=== PATIENT | male | born 1975 | race Two or more races ===

== ENCOUNTER → 2020-06-13 15:14 | Outpatient (BNVA) | payer OTHER, SELFPAY | PROVIDERS: PCP Internal Medicine; Referring Provider Internal Medicine; Visit Provider Internal Medicine Cardiovascular Disease | DX: Q23.1 Congenital insufficiency of aortic valve (principal); G47.33 Obstructive sleep apnea (adult) (pediatric); I10 Essential (primary) hypertension; Z99.89 Dependence on other enabling machines and devices; Z79.899 Other long term (current) drug therapy | CPT/HCPCS: 99213 ==

== ENCOUNTER 2020-06-19 09:05 | Outpatient (REF) | payer OTHER, SELFPAY ==
--- NOTE | 2020-06-19 09:18 | EMG_ITS ---
HISTORY OF PRESENT ILLNESS: This is a 45-year-old man with a history of bilateral hand pain and numbness that has been going on for a year symmetrically. Currently, on no medications. PHYSICAL EXAMINATION: On examination, he is alert and oriented with normal intellectual functions. Cranial nerves II through XII are normal. Muscle tone and strength are normal in all 4 extremities. Deep tendon reflexes are symmetrical. Plantar responses are flexor. IMPRESSION: Carpal tunnel syndrome. NERVE CONDUCTION EMG STUDY: Moderate carpal tunnel syndrome bilaterally. Normal EMG of the C5 through T1 innervated muscles bilaterally. MD EDWARD Nieves/KELECHIL / [id number]
== END 2020-06-19 09:06 | disposition home or self-care (01) ==
LOC: HO.NEURO 09:05
PROVIDERS: PCP Internal Medicine; Visit Provider Internal Medicine
DX: R20.0 Anesthesia of skin (principal)
CPT/HCPCS: 95860; 95913

== ENCOUNTER 2020-07-17 17:23 | Outpatient (REF) | payer OTHER, SELFPAY | END 2020-07-17 17:24 | disposition home or self-care (01) | LOC: HO.LAB 17:23 | PROVIDERS: PCP Internal Medicine; Visit Provider Internal Medicine | DX: Z20.828 Contact with and (suspected) exposure to other viral communicable diseases (principal) | CPT/HCPCS: C9803; U0003 ==

== ENCOUNTER 2020-12-20 14:22 | Outpatient (REF) | payer OTHER, SELFPAY ==
--- NOTE | ~2020-12-20 | MM_ITS ---
EXAMINATION: MM DIAGNOSTIC DIGITAL BREAST TOMOSYNTHESIS, BILATERAL US DIAGNOSTIC ULTRASOUND BREAST, RIGHT CLINICAL INFORMATION: 45-year-old male with pea-sized area of palpable concern 12:00 right breast. No prior breast imaging. COMPARISON: None (current study represents initial baseline exam). TECHNIQUE: Digital breast tomosynthesis is performed in both the craniocaudal and mediolateral oblique views along with computer-aided detection (CAD). Synthesized 2D images are generated from the tomosynthesis. Ultrasound right breast is targeted to the area of clinical concern 12:00 position. Patient is able to point to area of concern at time of imaging. Grayscale imaging and color Doppler are performed without and with harmonics. FINDINGS: The breasts are almost entirely fatty (ACR BI-RADS breast composition Category a). There is no mass or architectural abnormality. No visible oil cyst or lipoma. No skin thickening or coarsening of the stromal markings. No abnormal calcifications. No lymphadenopathy. Ultrasound demonstrates no cystic or solid mass or architectural abnormality. No skin thickening or edema tracking in soft tissue planes. Results are discussed with the patient at time of visit. Patient should be managed based on the clinical impression. If clinically indicated, further evaluation may be considered with surgical consult. Decision to proceed with biopsy should be based on clinical grounds and degree of clinical concern. MM/MM tomosynthesis diagnostic BI IMPRESSION: 1. No mammographic evidence of malignancy or inflammatory changes. 2. Unremarkable targeted right breast ultrasound. ASSESSMENT: BI-RADS 1: Negative RECOMMENDATION: Patient should be managed based on the clinical impression. If clinically indicated, further evaluation may be considered with surgical consult. Decision to proceed with biopsy should be based on clinical grounds and degree of clinical concern.
== END 2020-12-20 14:23 | disposition home or self-care (01) ==
LOC: HO.MAMMO 14:22
PROVIDERS: Visit Provider Internal Medicine
DX: N63.15 Unspecified lump in the right breast, overlapping quadrants (principal)
CPT/HCPCS: 76642; 77062; 77066

== ENCOUNTER → 2021-01-02 15:14 | Outpatient (BNVA) | payer OTHER, SELFPAY | PROVIDERS: PCP Internal Medicine; Referring Provider Internal Medicine; Visit Provider Internal Medicine Cardiovascular Disease | DX: Q23.1 Congenital insufficiency of aortic valve (principal); I10 Essential (primary) hypertension | CPT/HCPCS: 99212 ==

== ENCOUNTER 2021-01-17 15:38 | Outpatient (REF) | payer OTHER, SELFPAY ==
--- NOTE | ~2021-01-17 | XR_ITS ---
EXAMINATION: XR THORACOLUMBAR SPINE CLINICAL INFORMATION: Evaluate degenerative disc disease. COMPARISON: Thoracic spine radiographs dated 02/17/2019. TECHNIQUE: AP, lateral, and swimmer's views of the thoracic spine. FINDINGS: Minimal dextrocurvature of the upper thoracic spine is redemonstrated, not significantly changed. Mild straightening of the normal thoracic kyphosis. No acute fracture or subluxation. No loss of vertebral body height. Mild multilevel loss of intervertebral disc height with tiny anterior endplate osteophytes which appear slightly progressed when compared to the prior examination. No lytic or blastic osseous lesion. The visualized lungs are clear. XR/XR thoracic spine 2V IMPRESSION: Minimal dextrocurvature of the upper thoracic spine, unchanged. Mild multilevel degenerative disc disease, slightly progressed when compared to the prior examination.
== END 2021-01-17 15:39 | disposition home or self-care (01) ==
LOC: HO.XRAY 15:38
PROVIDERS: PCP Internal Medicine; Visit Provider Physical Medicine & Rehabilitation
DX: M51.34 Other intervertebral disc degeneration, thoracic region (principal)
CPT/HCPCS: 72070

== ENCOUNTER 2021-04-10 15:01 | Outpatient (REF) | payer OTHER, SELFPAY ==
--- NOTE | ~2021-04-10 | XR_ITS ---
EXAMINATION: XR LEFT ANKLE, LEFT KNEE, AND RIGHT KNEE CLINICAL INFORMATION: Pain. COMPARISON: None. TECHNIQUE: 3-view left ankle, 3-view left knee, and 3-view right knee. FINDINGS: Left Ankle: 3 views of the left ankle do not demonstrate any evidence of acute fracture or dislocation. Ankle mortise intact. There is some soft tissue swelling seen about the ankle. There are calcaneal spurs present sites insertion of Achilles and plantar tendons. Left Knee: 3 views of the left knee do not demonstrate any evidence of acute fracture or dislocation. There is mild narrowing of the medial joint space compartment. No effusion is seen. There is mild spurring undersurface of the patella. There are patella spurs sites of insertion of quadriceps and patellar tendons. No soft tissue swelling is seen about the tibial tuberosity. Right Knee: 3 views about the right knee do not demonstrate any evidence of acute fracture or dislocation. Joint spaces are maintained. There is mild spurring undersurface of the patella. There is patella spur site of insertion of the patella tendon. No significant soft tissue swelling is seen about the tibial tuberosity. No right knee effusion. XR/XR knee LT 3V IMPRESSION: Mild degenerative change of the right and left knees as described. No significant left ankle bony abnormality appreciated. Left calcaneal spurs.
--- NOTE | ~2021-04-10 | XR_ITS ---
EXAMINATION: XR LEFT ANKLE, LEFT KNEE, AND RIGHT KNEE CLINICAL INFORMATION: Pain. COMPARISON: None. TECHNIQUE: 3-view left ankle, 3-view left knee, and 3-view right knee. FINDINGS: Left Ankle: 3 views of the left ankle do not demonstrate any evidence of acute fracture or dislocation. Ankle mortise intact. There is some soft tissue swelling seen about the ankle. There are calcaneal spurs present sites insertion of Achilles and plantar tendons. Left Knee: 3 views of the left knee do not demonstrate any evidence of acute fracture or dislocation. There is mild narrowing of the medial joint space compartment. No effusion is seen. There is mild spurring undersurface of the patella. There are patella spurs sites of insertion of quadriceps and patellar tendons. No soft tissue swelling is seen about the tibial tuberosity. Right Knee: 3 views about the right knee do not demonstrate any evidence of acute fracture or dislocation. Joint spaces are maintained. There is mild spurring undersurface of the patella. There is patella spur site of insertion of the patella tendon. No significant soft tissue swelling is seen about the tibial tuberosity. No right knee effusion. XR/XR ankle LT 2V IMPRESSION: Mild degenerative change of the right and left knees as described. No significant left ankle bony abnormality appreciated. Left calcaneal spurs.
--- NOTE | ~2021-04-10 | XR_ITS ---
EXAMINATION: XR LEFT ANKLE, LEFT KNEE, AND RIGHT KNEE CLINICAL INFORMATION: Pain. COMPARISON: None. TECHNIQUE: 3-view left ankle, 3-view left knee, and 3-view right knee. FINDINGS: Left Ankle: 3 views of the left ankle do not demonstrate any evidence of acute fracture or dislocation. Ankle mortise intact. There is some soft tissue swelling seen about the ankle. There are calcaneal spurs present sites insertion of Achilles and plantar tendons. Left Knee: 3 views of the left knee do not demonstrate any evidence of acute fracture or dislocation. There is mild narrowing of the medial joint space compartment. No effusion is seen. There is mild spurring undersurface of the patella. There are patella spurs sites of insertion of quadriceps and patellar tendons. No soft tissue swelling is seen about the tibial tuberosity. Right Knee: 3 views about the right knee do not demonstrate any evidence of acute fracture or dislocation. Joint spaces are maintained. There is mild spurring undersurface of the patella. There is patella spur site of insertion of the patella tendon. No significant soft tissue swelling is seen about the tibial tuberosity. No right knee effusion. XR/XR knee RT 3V IMPRESSION: Mild degenerative change of the right and left knees as described. No significant left ankle bony abnormality appreciated. Left calcaneal spurs.
== END 2021-04-10 15:02 | disposition home or self-care (01) ==
LOC: HO.XRAY 15:01
PROVIDERS: PCP Internal Medicine; Visit Provider Internal Medicine
DX: M25.562 Pain in left knee (principal); M25.571 Pain in right ankle and joints of right foot; M25.572 Pain in left ankle and joints of left foot
CPT/HCPCS: 73562; 73600

== ENCOUNTER 2021-09-03 07:39 | Outpatient (REF) | payer OTHER, SELFPAY ==
[2021-09-03 12:04] LABS: Alanine Aminotransferase 31 U/L (0-40); Albumin Level 4.4 g/dL (3.5-5.0); Alkaline Phosphatase 72 U/L (39-117); Anion Gap 14 (12-20); Aspartate Amino Transferase 20 U/L (5-37); Bilirubin Total 0.6 mg/dL (0.0-1.0); Blood Urea Nitrogen 14 mg/dL (9-16); Calcium 9.8 mg/dL (8.4-10.2); Carbon Dioxide 26 mmol/L (22-29); Chloride 104 mmol/L (96-108); Cholesterol 185 mg/dL; Estimated Glomerular Filt Rate > 60; Glucose Fasting 126 mg/dL (60-99); HDL Cholesterol 41 mg/dL; LDL Cholesterol Calculated 82 mg/dl; Potassium 3.9 mmol/L (3.3-5.1); Sodium 140 mmol/L (135-145); Total Protein 7.6 g/dL (6.5-8.0); Triglycerides 310 mg/dL
== END 2021-09-03 07:40 | disposition home or self-care (01) ==
LOC: HO.HMGCLDS 07:39
PROVIDERS: PCP Internal Medicine; Visit Provider Internal Medicine
DX: I10 Essential (primary) hypertension (principal); E78.5 Hyperlipidemia, unspecified
CPT/HCPCS: 36415; 80053; 80061

== ENCOUNTER 2021-09-03 07:42 | Outpatient (REF) | payer OTHER, SELFPAY | END 2021-09-03 07:43 | disposition home or self-care (01) | LOC: HO.HMGCLDS 07:42 | PROVIDERS: Visit Provider Internal Medicine | DX: Z20.822 Contact with and (suspected) exposure to COVID-19 (principal) | CPT/HCPCS: C9803; U0003; U0005 ==

== ENCOUNTER → 2022-01-15 15:53 | Outpatient (BNVA) | payer OTHER, SELFPAY | PROVIDERS: PCP Internal Medicine; Visit Provider Internal Medicine Cardiovascular Disease | DX: Q23.1 Congenital insufficiency of aortic valve (principal); I10 Essential (primary) hypertension; E78.1 Pure hyperglyceridemia | CPT/HCPCS: 99212 ==

== ENCOUNTER → 2022-02-20 11:04 | Outpatient (BNVA) | payer OTHER, SELFPAY | PROVIDERS: PCP Internal Medicine; Referring Provider Internal Medicine; Visit Provider Internal Medicine Gastroenterology | DX: Z01.818 Encounter for other preprocedural examination (principal) | CPT/HCPCS: 99202 ==

== ENCOUNTER → 2022-03-17 15:00 | Outpatient (BNVA) | payer OTHER, SELFPAY | PROVIDERS: PCP Internal Medicine; Visit Provider Nurse Practitioner Family | DX: G57.11 Meralgia paresthetica, right lower limb (principal) | CPT/HCPCS: 99202 ==

== ENCOUNTER 2022-04-09 07:19 | Outpatient (REF) | payer OTHER, MEDICAID, SELFPAY ==
[2022-04-09 08:38] LABS: Alanine Aminotransferase 45 U/L (0-40); Albumin Level 4.5 g/dL (3.5-5.0); Alkaline Phosphatase 68 U/L (39-117); Anion Gap 13 (12-20); Aspartate Amino Transferase 23 U/L (5-37); Bilirubin Total 0.5 mg/dL (0.0-1.0); Blood Urea Nitrogen 17 mg/dL (9-16); Calcium 9.5 mg/dL (8.4-10.2); Carbon Dioxide 28 mmol/L (22-29); Chloride 105 mmol/L (96-108); Cholesterol 185 mg/dL; Estimated Glomerular Filt Rate 50; Glucose Fasting 121 mg/dL (60-99); HDL Cholesterol 39 mg/dL; LDL Cholesterol Calculated 104 mg/dl; Potassium 4.2 mmol/L (3.3-5.1); Sodium 142 mmol/L (135-145); Total Protein 7.6 g/dL (6.5-8.0); Triglycerides 210 mg/dL
== END 2022-04-09 07:20 | disposition home or self-care (01) ==
LOC: HO.LAB 07:19
PROVIDERS: PCP Internal Medicine; Visit Provider Internal Medicine
DX: E78.1 Pure hyperglyceridemia (principal); E78.5 Hyperlipidemia, unspecified
CPT/HCPCS: 36415; 80053; 80061

== ENCOUNTER 2022-05-05 16:26 | Outpatient (REF) | payer OTHER, SELFPAY ==
[2022-05-05 17:32] LABS: Alanine Aminotransferase 46 U/L (0-40); Albumin Level 4.7 g/dL (3.5-5.0); Alkaline Phosphatase 70 U/L (39-117); Anion Gap 15 (12-20); Aspartate Amino Transferase 24 U/L (5-37); Bilirubin Total 0.4 mg/dL (0.0-1.0); Blood Urea Nitrogen 20 mg/dL (9-16); Calcium 10.3 mg/dL (8.4-10.2); Carbon Dioxide 30 mmol/L (22-29); Chloride 103 mmol/L (96-108); Estimated Glomerular Filt Rate 49; Glucose Random 121 mg/dL (60-115); Sodium 143 mmol/L (135-145); Total Protein 7.8 g/dL (6.5-8.0); Uric Acid 7.7 mg/dL (3.4-7.0)
[2022-05-05 17:33] LABS: Appearance Urine Clear; Color Urine Yellow; Glucose Urine UA Negative (Negative); Leukocyte Esterase Urine Negative (Negative); Nitrite Urine Negative (Negative); Urine Blood Negative (Negative); Urine Ketones Negative (Negative); Urine Protein Negative (Neg-Trace)
[2022-05-05 17:38] LABS: Bacteria Urine None Seen (None Seen); Hyaline Casts Urine 0-2 /LPF (0-2); RBC Urine 0-2 /HPF (0-2); Squamous Epithelial Cell Urine 0-2 /HPF (0-2); WBC Urine 0-5 /HPF (0-5)
[2022-05-05 18:36] LABS: Total Protein Urine Random < 7 mg/dL (<12)
[2022-05-07 12:26] LABS: Calcium (PTHI) 10.5 mg/dL (8.6-10.3); PTHI 39 pg/mL (16-77)
== END 2022-05-05 16:27 | disposition home or self-care (01) ==
LOC: HO.LAB 16:26
PROVIDERS: PCP Internal Medicine; Visit Provider Internal Medicine Hypertension Specialist
DX: I12.9 Hypertensive chronic kidney disease with stage 1 through stage 4 chronic kidney disease, or unspecified chronic kidney disease (principal); N18.31 Chronic kidney disease, stage 3a
CPT/HCPCS: 36415; 80053; 81001; 83970; 84156; 84550

== ENCOUNTER 2022-05-12 16:50 | Outpatient (REF) | payer OTHER, SELFPAY ==
[2022-05-12 19:21] LABS: Estimated Glomerular Filt Rate 60
[2022-05-12 19:49] LABS: Creatinine, mg/dL 107.27; Uric Acid, mg/dL 32.2 mg/dL
[2022-05-12 19:50] LABS: Creatinine, 24Hr Urine 2.3 G/Day (1.0-2.0); Total Volume 24 Hour Urine 2175 mL
[2022-05-12 19:51] LABS: Creatinine, 24Hr Urine 2.3 G/Day (1.0-2.0); Sodium 24 Hr Urine 306.7 mmol/Day (40-220); Total Volume 24 Hour Urine 2175 mL; Uric Acid, 24 Hr Urine 700.4 mg/Day (250-750)
[2022-05-12 19:52] LABS: Creatinine (CrCl) 1.29 mg/dL (0.5-1.4); Creatinine Clearance 125.8 mL/min (85-125)
[2022-05-14 16:46] LABS: Calcium, 24 Hr Urine 148 mg/24 h; Calcium/Creatinine Ratio 64 mg/g creat (30-210); Creatinine 24Hr Urine 2.31 g/24 h (0.50-2.15)
[2022-05-18 16:22] LABS: 24hr Urine Total Volume 2175 mL; Citric Acid, 24hr Urine 805 mg/24 h (100-1300); Citric Acid/Creat Ratio 24U 344 mg/g creat (60-660); Creatinine, 24U 2.31 g/24 h (0.50-2.15); Oxalic Acid 24 Urine 28.3 mg/24 h (3.6-38.0)
== END 2022-05-12 16:51 | disposition home or self-care (01) ==
LOC: HO.LAB 16:50
PROVIDERS: PCP Internal Medicine; Visit Provider Internal Medicine Hypertension Specialist
DX: Z13.89 Encounter for screening for other disorder (principal)
CPT/HCPCS: 36415; 82340; 82507; 82565; 82575; 83945; 84300; 84560

== ENCOUNTER → 2022-11-09 15:16 | Outpatient (BNVA) | payer OTHER, SELFPAY | PROVIDERS: PCP Internal Medicine; Referring Provider Internal Medicine; Visit Provider Internal Medicine Cardiovascular Disease | DX: Q23.1 Congenital insufficiency of aortic valve (principal); I10 Essential (primary) hypertension; R00.2 Palpitations | CPT/HCPCS: 93005 ==

== ENCOUNTER → 2022-11-26 14:55 | Outpatient (REF) | payer OTHER, SELFPAY ==
--- NOTE | 2022-11-26 14:58 | HM_ITS ---
Conclusion: 1. Patient was monitored for total period of 3 days 2. Baseline was normal sinus rhythm with average heart rate of 68 beats per minute 3. Rare PACs noted 4. No significant pauses noted 5. No patient reported symptoms MTDD
== END ==
LOC: HO.CARD 14:55
PROVIDERS: PCP Internal Medicine; Visit Provider Internal Medicine Cardiovascular Disease
DX: R00.2 Palpitations (principal)
CPT/HCPCS: 93242

== ENCOUNTER 2022-12-23 06:43 | Day surgery (SDC) | payer OTHER, SELFPAY ==
--- NOTE | 2022-12-22 13:56 | P.CONAN_ITS ---
Documented by User: Ada Guaman NP 12/22/22 13:58 HPI - Anesthesia Eval Consult details Narrative: 47yo M for Colonoscopy PMFSH Active Problems Active Problems: All Active Problems (Updated 11/09/22 @ 16:21 by Terry Driver MD) Palpitations (Acute) CKD (chronic kidney disease) stage 3, GFR 30-59 ml/min (Acute) Physical exam (Acute) Meralgia paresthetica, right lower limb (Acute) Hypertriglyceridemia (Acute) Restless leg (Acute) Left elbow pain (Acute) Hypertriglyceridemia (Acute) Family history of colon cancer (Acute) Right knee pain (Acute) Left knee pain (Acute) Right ankle pain (Acute) Breast mass, right (Acute) Lumbar degenerative disc disease (Acute) Lumbosacral stenosis (Acute) Pain in thoracic spine (Acute) Meralgia paresthetica, right lower limb (Acute) Lumbar radiculopathy, chronic (Acute) Muscle spasm (Acute) KAYLA (obstructive sleep apnea) (Acute) Morbid obesity (Acute) Bicuspid aortic valve (Acute) Hypertension (Acute) Past Medical History Medical History Bicuspid aortic valve Breast mass, right Family history of colon cancer Hypertension Hypertriglyceridemia Left elbow pain Left knee pain Lumbar degenerative disc disease Lumbosacral stenosis Morbid obesity Muscle spasm Numbness and tingling of left side of face KAYLA (obstructive sleep apnea) Pain in thoracic spine Paresthesia of left arm Restless leg Right ankle pain Right knee pain Family History Family History Father HTN (hypertension) Mother HTN (hypertension) Diabetes Lupus Sister Thyroid cancer Maternal Grandfather Colon cancer Maternal Aunt Stomach cancer Surgical History Surgical History History of vasectomy Social History Social History Housing: House Alcohol intake: current Alcohol intake frequency: holidays/special occasions only Alcohol type: beer Patient Tobacco Use Status: Never used Tobacco e-Cigarette/Vaping Use: Never Used Second Hand Smoke Exposure: No Use of substances other than those prescribed or required for medical reasons: No Are you DNR?: No Advance Directives: No Advance Directives Information Provided: Yes service: No Current occupational status: employed Current occupational exposures/hazards: No Cognitive needs: No Hearing needs: No Vision needs: No Meds Allergies Allergy/AdvReac Type Severity Reaction Status Date / Time No Known Allergies Allergy Verified 11/09/22 15:35 Exam Exam Date and Time: December 22, 2022 1356 Narrative Narrative: EKG 11/2022 Sinus rhythm 61 beats per minute, complete right bundle-branch block, QTC 430 milliseconds. Holter 11/2022 Conclusion: 1. Patient was monitored for total period of 3 days 2. Baseline was normal sinus rhythm with average heart rate of 68 beats per minute 3. Rare PACs noted 4. No significant pauses noted 5. No patient reported symptoms? Assessment and Plan Assessment Anesthesia Assessment: Chart Reviewed Documented by User: Jacob Barnard MD 12/23/22 07:31 [facility] Past Medical History Medical History Bicuspid aortic valve Breast mass, right Family history of colon cancer Hypertension Hypertriglyceridemia Left elbow pain Left knee pain Lumbar degenerative disc disease Lumbosacral stenosis Morbid obesity Muscle spasm Numbness and tingling of left side of face KAYLA (obstructive sleep apnea) Pain in thoracic spine Paresthesia of left arm Restless leg Right ankle pain Right knee pain Family History Family History Father HTN (hypertension) Mother HTN (hypertension) Diabetes Lupus Sister Thyroid cancer Maternal Grandfather Colon cancer Maternal Aunt Stomach cancer Family history of problems with anesthesia: No Surgical History Surgical History History of vasectomy History of Problems with Anesthesia: No Social History Social History Housing: House Alcohol intake: current Alcohol intake frequency: holidays/special occasions only Alcohol type: beer Patient Tobacco Use Status: Never used Tobacco e-Cigarette/Vaping Use: Never Used Second Hand Smoke Exposure: No Use of substances other than those prescribed or required for medical reasons: No Are you DNR?: No Advance Directives: No Advance Directives Information Provided: Yes service: No Current occupational status: employed Current occupational exposures/hazards: No Cognitive needs: No Hearing needs: No Vision needs: No Meds Allergies Allergy/AdvReac Type Severity Reaction Status Date / Time No Known Allergies Allergy Verified 11/09/22 15:35 Exam Airway Mallampati Class: I TM Dist: >3cm Neck ROM: Full Loose/Missing/Broken Teeth: No Heart: ok Lungs: ok Assessment and Plan Final Anesthetic Review Family History of Problems with Anesthesia: No History of Problems with Anesthesia: No NPO: Yes ASA Class: III Final Preanesthetic Review: No Changes in Pt Med Stat, Meds/Allgs Chart Reviewed, Consent Obtained/Reviewed and Anes Risks/Benef Reviewed Patient Risk: Intermediate Procedure Risk: Low Anesthetic Plan Anesthetic Plan: MAC: and Agree w/ Assess. and Plan Disposition: Standard PACU
--- NOTE | 2022-12-23 05:23 | MHC.SHP ---
Pre-Procedural Eval Section A Date of Service: 12/23/22 Section B Chief Complaint: screening Relevant Family History (Specify if Yes): Yes Relevant Social History: None Present Medications: see Short Stay Collaborative assessment Medical History: Significant History (Bicuspid aortic valve Breast mass, right Family history of colon cancer Hypertension Hypertriglyceridemia Left elbow pain Left knee pain Lumbar degenerative disc disease Lumbosacral stenosis Morbid obesity Muscle spasm Numbness and tingling of left side of face KAYLA (obstructive sleep apnea) Pain in ) History of Previous Operations: Relevant previous surgery/procedure and date(s) (vasectomy) Allergies: Allergies Allergy/AdvReac Type Severity Reaction Status Date / Time No Known Allergies Allergy Verified 11/09/22 15:35 Review of Systems Sugical H&P ROS: Negative: Constitution, Cardiovascular, Respiratory, Neurological, Psychiatric, Hem-Onc, Allergic/Immunologic, Gastrointestinal, Genitourinary, Musculoskeletal, Integumentary, Endocrine and Eyes/Ears/Nose/Throat Exam Surgical H&P Exam: Normal: HEENT, Normal: Heart, Normal: Lungs, Normal: Extremities, Normal: Abdomen, Normal: Skin and Normal: Neurological Plan Diagnosis/Plan: Unchanged I have reviewed the history and physical and performed a pertinent physical examination on my patient. No changes have occurred unless specified. Time Spent With Patient Time: Total time managing care of this patient today ____ minutes.
[2022-12-23 07:08] VITALS: BMI 40.7
[2022-12-23 07:14] VITALS: BP 145/94; PULSE 70; RESP 16; TEMP 36.3; O2SAT 94
[2022-12-23] MEDS: Lactated Ringers 1,000 ML 100 ML IVCONT (07:26)
--- NOTE | 2022-12-23 08:01 | P.OP_ITS ---
Operative Note Operative Note Date of Service: 12/23/22 Narrative: Operative Information Procedure Description: Colonoscopy Indication: screening Anesthesia: MAC COLONOSCOPY Instrument: Olympus variable stiffness pediatric scope 190L Colonoscopy Monitoring: Vital signs and clinical assessment, continuous EKG monitoring, Pulse oximetry, Carbon Dioxide monitoring and blood pressure monitoring were done throughout the procedure. Colon withdrawal time was 9 minutes. Procedure: The patient was placed in the left lateral decubitis position and pre-procedure medications were administered. After a digital rectal examination of the ano-rectum, the video colonoscope was inserted into the rectum and advanced through the colon to the cecum/TI. The colonoscope was slowly withdrawn in a retrograde panoramic fashion and the colon mucosa was carefully examined including a retroflexed view of the rectum. Findings and interventions are described below. Procedure Difficulty: easy Findings: Terminal Ileum-normal Cecum:normal Ascending Colon: normal Transverse Colon - 8-10 mm sessile polyp removed with cold snare Descending Colon:normal Sigmoid Colon: x2 sessile polyps 7-9 mm removed with cold snare Rectum: Retroflexion with small internal hemorrhoids, grade I, x1 sessile polyp 8-9 mm removed with cold snare Anorectum - normal Colon preparation: [place] Bowel Preparation Scale Right colon; 3 Transverse colon: 3 Left colon; 3 (0 = Unprepared colon segment with mucosa not seen due to solid stool that cannot be cleared. 1 = Portion of mucosa of the colon segment seen, but other areas of the colon segment not well seen due to staining, residual stool and/or opaque liquid. 2 = Minor amount of residual staining, small fragments of stool and/or opaque liquid, but mucosa of colon segment seen well. 3 = Entire mucosa of colon segment seen well with no residual staining, small fragments of stool or opaque liquid) Impression and Post Procedure Diagnosis: polyps internal hemorrhoids Plan: High fiber diet leaflet Avoid straining at stool, epsom salts and sitz bath, anusol supps or cream Repeat Colonoscopy in 3-5 years due to polyps or earlier if clinically indicated Above findings were reviewed with the patient and relevant handouts were provided if indicated.
[2022-12-23 08:06] VITALS: BP 113/59; PULSE 62; RESP 18; TEMP 37.4; O2SAT 93
[2022-12-23 08:21] VITALS: BP 122/74; PULSE 59; RESP 16; TEMP 37.4; O2SAT 96
== END 2022-12-23 08:59 | disposition home or self-care (01) ==
PROVIDERS: PCP Internal Medicine; Visit Provider Internal Medicine Gastroenterology
PROC: 0DJD8ZZ Inspection of Lower Intestinal Tract, Via Natural or Artificial Opening Endoscopic (ICD-10-PCS; CPT 45378; principal; 2022-12-23 07:30)
DX: Z12.11 Encounter for screening for malignant neoplasm of colon (principal); Z80.0 Family history of malignant neoplasm of digestive organs; D12.3 Benign neoplasm of transverse colon; K63.5 Polyp of colon; K62.1 Rectal polyp; K57.30 Diverticulosis of large intestine without perforation or abscess without bleeding; K64.0 First degree hemorrhoids; G47.33 Obstructive sleep apnea (adult) (pediatric); I10 Essential (primary) hypertension; E78.1 Pure hyperglyceridemia; Q23.1 Congenital insufficiency of aortic valve; E66.01 Morbid (severe) obesity due to excess calories; Z68.39 Body mass index [BMI] 39.0-39.9, adult; M25.59 Pain in other specified joint; R20.0 Anesthesia of skin; R20.2 Paresthesia of skin; Z79.82 Long term (current) use of aspirin; Z79.899 Other long term (current) drug therapy
CPT/HCPCS: 45385; 88305; J3010

== ENCOUNTER → 2023-02-22 14:58 | Outpatient (BNVA) | payer OTHER, SELFPAY | PROVIDERS: PCP Internal Medicine; Referring Provider Internal Medicine; Visit Provider Internal Medicine Cardiovascular Disease ==

== ENCOUNTER → 2023-03-23 11:34 | Outpatient (BNVA) | payer OTHER, SELFPAY | PROVIDERS: PCP Internal Medicine; Visit Provider Internal Medicine Cardiovascular Disease ==

== ENCOUNTER 2023-06-09 15:32 | Outpatient (AMB) | payer OTHER, SELFPAY ==
[2023-06-09 15:37] VITALS: BP 140/84; PULSE 84; BMI 40.5
--- NOTE | 2023-06-09 15:37 | MHC.OFFVIS ---
Intake Vital Signs 06/09/23 15:37 Height 6 ft 3 in Weight 324 lb 1.272 oz BMI 40.5 BP 140/84 H Blood Pressure Location Lt brachial Position Sitting Pulse 84 Intake Visit Reasons: 3 month follow up Intake Note: 3 month follow-up feeling good Allergies No Known Allergies Allergy (Verified 03/23/23 11:49) Medication List - Last Reconciled 06/09/23 by Terry Driver MD amlodipine 10 mg PO DAILY 90 days aspirin (Adult Low Dose Aspirin) 81 mg PO DAILY blood pressure test kit-large As directed fenofibrate 54 mg PO DAILY 90 days gabapentin 100 mg PO BID 30 days hydrochlorothiazide 25 mg PO BID 60 days lisinopril 40 mg PO BID HPI HPI Comments History of Present Illness Details 47-year-old gentleman here for follow-up. He has background history of hypertension and bicuspid aortic valve. No stenosis or regurgitation. Follow-up his blood pressure is elevated. He said he went to the dentist a week ago and was also told that his blood pressure is quite high and was sent back home. Denying any symptoms otherwise. He is watching salt in his diet. He does not drink alcohol regularly. Uses NSAIDs quite rarely. He is saying that he has daytime sleepiness despite using his CPAP mask. He has gained more weight. 06/09/23: HE is here for f/u. BP little better after increasing lisinopril to 40 mg BID. He is complaining of mid day fatigue and sleepiness. His last sleep study was 4 years ago. [facility] Medical History Bicuspid aortic valve Breast mass, right Family history of colon cancer Hypertension Hypertriglyceridemia Left elbow pain Left knee pain Lumbar degenerative disc disease Lumbosacral stenosis Morbid obesity Muscle spasm Numbness and tingling of left side of face KALYA (obstructive sleep apnea) Pain in thoracic spine Paresthesia of left arm Restless leg Right ankle pain Right knee pain Surgical History History of vasectomy Family History Father HTN (hypertension) Mother HTN (hypertension) Diabetes Lupus Sister Thyroid cancer Maternal Grandfather Colon cancer Maternal Aunt Stomach cancer Social History (Reviewed 02/22/23 @ 15:02 by Lavonne De Leon [facility]) Housing: House Alcohol intake: current Alcohol intake frequency: holidays/special occasions only Alcohol type: beer Patient Tobacco Use Status: Never used Tobacco e-Cigarette/Vaping Use: Never Used Second Hand Smoke Exposure: No service: No Current occupational status: employed Current occupational exposures/hazards: No Cognitive needs: No Hearing needs: No Vision needs: No Review of Systems Const Denies chills, Denies fatigue, Denies fever(s), Denies frequent falls, Denies weakness, Denies weight gain and Denies weight loss ENT Denies dizziness Card Denies chest pain, Denies leg edema, Denies lightheadedness, Denies palpitations, Denies dyspnea, Denies dyspnea on exertion, Denies orthopnea and Denies other (loss of consciousness) Resp Denies cough, Denies dyspnea and Denies dyspnea on exertion GI Denies hematochezia and Denies change in stool character Musc Denies abnormal gait, Denies muscle weakness, Denies numbness, Denies radiating pain into limb and Denies tingling Neuro Denies abnormal gait, Denies dizziness, Denies frequent falls, Denies numbness, Denies tingling and Denies weakness Endo Denies fatigue and Denies palpitations Physical Exam Vital Signs: Last Vital Signs Pulse 84 06/09/23 15:37 BP 140/84 H 06/09/23 15:37 BMI result Body Mass Index 40.5 GENERAL APPEARANCE: in no acute distress, pleasant. NECK/THYROID: no carotid bruit, no jugular venous distention. SKIN: no suspicious lesions, warm and dry. HEART: no murmurs, regular rate and rhythm. LUNGS: clear to auscultation bilaterally. ABDOMEN: soft, nontender. EXTREMITIES: No significant edema. PERIPHERAL PULSES: equal. NEUROLOGIC: No gross deficits, AAO X 3 Assessment & Plan Assessment & Plan (1) Hypertension: Code(s): I10 - Essential (primary) hypertension Qualifiers: Hypertension type: essential hypertension Qualified Code(s): I10 - Essential (primary) hypertension (2) Bicuspid aortic valve: Comment: Bicuspid aortic valve without any significant stenosis or regurgitation. Code(s): Q23.1 - Congenital insufficiency of aortic valve Plan 48 male with bicuspid AV and HTN. BP still up. Advised him to increase the HCTZ to 50 mg BID. We will get BMP in few days. Referring for titration sleep study and sleep medicine consult. Orders: Orders Magnesium Today N18.30 - Chronic kidney disease, stage 3 unspecified RT PSG in-lab sleep titration Today G47.33 - Obstructive sleep apnea (adult) (pediatric) Basic Metabolic Panel Today N18.30 - Chronic kidney disease, stage 3 unspecified Referrals Sleep Medicine Referral G47.33 - Obstructive sleep apnea (adult) (pediatric) Coding Level of Care Code Est Pt Level 4 (42260) Diagnoses Essential hypertension I10 Hypertension type: essential hypertension Bicuspid aortic valve Q23.1
== END 2023-06-09 16:09 | disposition home or self-care (01) ==
PROVIDERS: PCP Internal Medicine; Visit Provider Internal Medicine Cardiovascular Disease
DX: I10 Essential (primary) hypertension (principal); Q23.1 Congenital insufficiency of aortic valve
CPT/HCPCS: 99214

== ENCOUNTER → 2023-06-09 15:32 | Outpatient (BNVA) | payer OTHER, SELFPAY | PROVIDERS: PCP Internal Medicine; Visit Provider Internal Medicine Cardiovascular Disease ==

== ENCOUNTER 2023-07-13 15:08 | Outpatient (REF) | payer OTHER, SELFPAY ==
[2023-07-13 15:43] LABS: Hematocrit 43.3 % (42.0-52.0); Hemoglobin 15.2 g/dl (14.0-18.0); Mean Corpuscular HGB Conc 35.1 g/dl (31.0-36.0); Mean Corpuscular Hemoglobin 29.7 pg (27.0-33.0); Mean Corpuscular Volume 84.7 fL (80.0-98.0); Mean Platelet Volume 12.1 fL (9.4-12.4); Platelet Count 190 X10*3/uL (160-400); Red Blood Count 5.11 X10*6/uL (4.60-5.80); Red Cell Distribution Width 12.6 % (11.0-16.0); White Blood Count 7.1 X10*3/uL (4.8-10.8)
[2023-07-13 16:05] LABS: Anion Gap 12 (12-20); Blood Urea Nitrogen 16 mg/dL (9-16); Calcium 9.8 mg/dL (8.4-10.2); Carbon Dioxide 27 mmol/L (22-29); Chloride 107 mmol/L (96-108); Estimated Glomerular Filt Rate 55; Glucose Random 104 mg/dL (60-115); Potassium 3.6 mmol/L (3.3-5.1); Sodium 142 mmol/L (135-145)
== END 2023-07-13 15:09 | disposition home or self-care (01) ==
LOC: HO.LAB 15:08
PROVIDERS: PCP Internal Medicine; Visit Provider Internal Medicine Hypertension Specialist
DX: I12.9 Hypertensive chronic kidney disease with stage 1 through stage 4 chronic kidney disease, or unspecified chronic kidney disease (principal); N18.30 Chronic kidney disease, stage 3 unspecified; N20.0 Calculus of kidney; R79.89 Other specified abnormal findings of blood chemistry
CPT/HCPCS: 36415; 80048; 83735; 85027

== ENCOUNTER 2023-07-13 15:30 | Outpatient (AMB) | payer OTHER, SELFPAY ==
[2023-07-13 15:36] VITALS: BP 128/82; PULSE 81; O2SAT 94; BMI 40.5
--- NOTE | 2023-07-13 15:36 | HO.NEPHOV_ITS ---
HPI HPI Comments History of Present Illness Details 48-year-old man with a history of obesit y hypertension has been referred for chronic disease. His baseline creatinine is around 1.2 mg/dL. About 3 months ago creatinine bumped to 1.5 mg/dL which has prompted return to the baseline of 1.2. He has history of kidney stones. He has undergone stent placement back in [place] a few years ago. He is here for further evaluation. He has undergone a 24 hour urine collection. [facility] Medical History Bicuspid aortic valve Breast mass, right Family history of colon cancer Hypertension Hypertriglyceridemia Left elbow pain Left knee pain Lumbar degenerative disc disease Lumbosacral stenosis Morbid obesity Muscle spasm Numbness and tingling of left side of face KAYLA (obstructive sleep apnea) Pain in thoracic spine Paresthesia of left arm Restless leg Right ankle pain Right knee pain Surgical History History of vasectomy Family History Father HTN (hypertension) Mother HTN (hypertension) Diabetes Lupus Sister Thyroid cancer Maternal Grandfather Colon cancer Maternal Aunt Stomach cancer Social History (Updated 07/13/23 @ 15:39 by Lavonne Clark MA) Housing: House Alcohol intake: current Alcohol intake frequency: holidays/special occasions only Alcohol type: beer Patient Tobacco Use Status: Never used Tobacco e-Cigarette/Vaping Use: Never Used Second Hand Smoke Exposure: No service: No Current occupational status: employed Current occupational exposures/hazards: No Cognitive needs: No Hearing needs: No Vision needs: No Vital Signs 07/13/23 15:36 Height 6 ft 3 in Weight 324 lb BMI 40.5 BP 128/82 Pulse 81 Pulse Source Pulse Oximeter Pulse Oximetry (%) 94 Oxygen Delivery Method Room Air Physical Exam Vital Signs: Last Vital Signs Pulse 81 07/13/23 15:36 BP 128/82 07/13/23 15:36 Pulse Ox 94 07/13/23 15:36 Oxygen Delivery Method Room Air 07/13/23 15:36 BMI result Body Mass Index 40.5 Const General: comfortable Nutritional Appearance: obese Orientation/consciousness: patient oriented x3 HEENT Head: No normal to inspection Mouth: moist mucous membranes Neck Neck: Yes supple and Yes no JVD Resp Auscultation: clear to auscultation bilaterally, no rales and rub present Cardio Jugular venous distension: no JVD Palpation: no palpable S3 and no palpable S4 Heart sounds: no rubs GI Palpation (GI): Soft to palpation and nontender Percussion: No Fluid wave present General: Yes no CVA tenderness Back/Spine/Pelvis Back: no CVA tenderness Skin General skin exam: no rashes or lesions noted Neuro General: patient oriented x3 Extrem General: Yes no pedal edema and No clubbing Results Reviewed Results Reviewed: Results were reviewed. 24 hour urine collection showed excessive sodium excretion. Assessment & Plan Assessment & Plan (1) Hypertension: Code(s): I10 - Essential (primary) hypertension Qualifiers: Hypertension type: essential hypertension Qualified Code(s): I10 - Essential (primary) hypertension Plan: Blood pressure is well controlled. He should stay on low-sodium diet. We discussed weight loss and increasing physical activity. Continue with current antihypertensive regimen. No changes were made. (2) Nephrolithiasis: Code(s): N20.0 - Calculus of kidney Plan: Currently asymptomatic. 24 hour urine collection showed normal excretions of calcium, oxalate, citric acid. Urinary sodium excretion was significantly elevated at 307. We discussed importance of a low-salt diet. Urine volume is adequate at 2.1 L. He should continue drinking adequate fluids to maintain a urine output of at le ast 2 L per 24 hours. (3) Elevated serum creatinine: Code(s): R79.89 - Other specified abnormal findings of blood chemistry Plan: Chandler has elevated serum creatinine and his baseline creatinine is around 1.2 to 1.3 mg/dL. He probably sustained acute kidney injury in April with a creatinine bumping up to 1.5 mg/dL. This may be due to hypoperfusion most likely from volume depletion. He admits to not drinking enough fluids during that time. 24 hour urine collection showed elevated urinary creatinine excretion and creatinine clearance was normal at 128 mL/minute. The EGFR is spuriously low at 50 mL/minute. Orders: Orders Electrolytes 1 Year I10 - Essential (primary) hypertension Blood Urea Nitrogen 1 Year I10 - Essential (primary) hypertension Creatinine 1 Year I10 - Essential (primary) hypertension Calcium 1 Year I10 - Essential (primary) hypertension Coding Level of Care Code Est Pt Level 4 (73230) Diagnoses Essential hypertension I10 Hypertension type: essential hypertension Nephrolithiasis N20.0 Elevated serum creatinine R79.89
== END 2023-07-13 15:58 | disposition home or self-care (01) ==
PROVIDERS: PCP Internal Medicine; Visit Provider Internal Medicine Hypertension Specialist
DX: I10 Essential (primary) hypertension (principal); N20.0 Calculus of kidney; R79.89 Other specified abnormal findings of blood chemistry
CPT/HCPCS: 99214

== ENCOUNTER 2023-08-31 11:09 | Outpatient (AMB) | payer OTHER, SELFPAY ==
--- NOTE | 2023-08-31 11:13 | MHC.OFFVIS ---
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 Pt reports he was diagnosed with KAYLA in 2019 and has been using CPAP since then. 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 He gained about 30 lb since the last sleep study. His home care company is [employer]. His CPAP pressure is 11 cmH2O. He sleeps well 7-8 hrs with CPAP and wakes up refreshed, denies daytime sleepiness. Denies difficulty falling asleep or staying sleep. He gets his CPAP supplies regularly. The CPAP compliance and therapy response (06/02/23-07/31/23) reviewed. He is on CPAP at [id number]. The usage days 84% and the average usage hours 6 hrs 40 min. The AHI was 2.5/hr. He still can have right upper leg numbness and occasional burning sensation. He tried gabapentin 100-200mg but it did not help to reduce the occasional burning sensation. [facility] Medical History Bicuspid aortic valve Breast mass, right Family history of colon cancer Hypertension Hypertriglyceridemia Left elbow pain Left knee pain Lumbar degenerative disc disease Lumbosacral stenosis Morbid obesity Muscle spasm Numbness and tingling of left side of face KAYLA (obstructive sleep apnea) Pain in thoracic spine Paresthesia of left arm Restless leg Right ankle pain Right knee pain Surgical History History of vasectomy Family History Father HTN (hypertension) Mother HTN (hypertension) Diabetes Lupus Sister Thyroid cancer Maternal Grandfather Colon cancer Maternal Aunt Stomach cancer Social History Housing: House Alcohol intake: current Alcohol intake frequency: holidays/special occasions only Alcohol type: beer Patient Tobacco Use Status: Never used Tobacco e-Cigarette/Vaping Use: Never Used Second Hand Smoke Exposure: No service: No Current occupational status: employed Current occupational exposures/hazards: No Cognitive needs: No Hearing needs: No Vision needs: No Review of Systems Const All systems reviewed & are unremarkable except as noted in HPI and below Physical Exam Vital Signs: Last Vital Signs Pulse 68 08/31/23 11:15 Resp 17 08/31/23 11:15 BP 162/90 H 08/31/23 11:15 Pulse Ox 96 08/31/23 11:15 Oxygen Delivery Method Room Air 08/31/23 11:15 BMI result Body Mass Index 41.6 Const General: cooperative and no acute distress Nutritional Appearance: obese Orientation/consciousness: patient oriented x3 Neck Neck: Yes full ROM and Yes supple Back/Spine/Pelvis Cervical Spine: cervical ROM normal Thoracic/Lumbar Spine: thoraco-lumbar ROM normal Neuro General: patient oriented x3, gait normal, tone normal, moves all extremities and CN's II-XI intact bilaterally Deep tendon reflexes (DTR's): Right patellar reflex intensity grade: 2+ and Left patellar reflex intensity grade: 2+ Psych Appearance: grossly normal Mental Status: mental status grossly normal Speech and movement: Normal speech and movement present Assessment & Plan Assessment & Plan (1) Meralgia paresthetica, right lower limb: Code(s): G57.11 - Meralgia paresthetica, right lower limb (2) KAYLA on CPAP: Code(s): G47.33 - Obstructive sleep apnea (adult) (pediatric) Plan Continue to use CPAP at [id number] as patient experiences good clinical effect, good quality of sleep and reduce AHI. Stressed compliance, use CPAP nightly and more than 4 hrs. Educate patient to avoid tight pants and encouraged to lose wt. Increase gabapentin to 300 mg daily. Medications: New gabapentin 300 mg PO DAILY 90 days 90 caps 1RF Discontinued gabapentin Discontinued Reason: Doctor's Order 100 mg PO BID 30 days 60 caps 2RF Coding Level of Care Code Est Pt Level 4 (88378) Diagnoses Meralgia paresthetica, right lower limb G57.11 KAYLA on CPAP G47.33
[2023-08-31 11:15] VITALS: BP 162/90; PULSE 68; RESP 17; O2SAT 96; BMI 41.6
== END 2023-08-31 11:41 | disposition home or self-care (01) ==
PROVIDERS: PCP Internal Medicine; Visit Provider Nurse Practitioner Family
DX: G57.11 Meralgia paresthetica, right lower limb (principal); G47.33 Obstructive sleep apnea (adult) (pediatric)
CPT/HCPCS: 99214

== ENCOUNTER → 2023-08-31 11:09 | Outpatient (BNVA) | payer OTHER, SELFPAY | PROVIDERS: PCP Internal Medicine; Visit Provider Nurse Practitioner Family ==

== ENCOUNTER 2023-09-20 14:06 | Outpatient (REF) | payer OTHER, SELFPAY ==
[2023-09-20 14:44] LABS: Anion Gap 12 (12-20); Blood Urea Nitrogen 15 mg/dL (9-16); Calcium 10.1 mg/dL (8.4-10.2); Carbon Dioxide 30 mmol/L (22-29); Chloride 102 mmol/L (96-108); Estimated Glomerular Filt Rate 58; Potassium 3.8 mmol/L (3.3-5.1); Sodium 140 mmol/L (135-145)
[2023-09-20 15:07] LABS: Influenza A PCR POSITIVE (Negative); Influenza B PCR NEGATIVE (Negative); Resp Syncy Virus RNA Qual PCR NEGATIVE (Negative); SARS COV2 PCR INHOUSE NEGATIVE (Negative)
== END 2023-09-20 14:07 | disposition home or self-care (01) ==
LOC: HO.LAB 14:06
PROVIDERS: Internal Medicine Hypertension Specialist; PCP Internal Medicine; Visit Provider Internal Medicine
DX: Z11.52 Encounter for screening for COVID-19 (principal); Z20.822 Contact with and (suspected) exposure to COVID-19; R09.89 Other specified symptoms and signs involving the circulatory and respiratory systems; N18.9 Chronic kidney disease, unspecified
CPT/HCPCS: 0241U; 36415; 80051; 82310; 82565; 84520

== ENCOUNTER 2023-09-20 15:04 | Outpatient (AMB) | payer OTHER, SELFPAY ==
--- NOTE | 2023-09-20 15:08 | A.OFFPC_ITS ---
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 Accompanied by: Self / Same As Patient Allergies No Known Allergies Allergy (Verified 09/20/23 15:14) Medication List - Last Reconciled 09/20/23 by Franca Che MD amlodipine 10 mg PO DAILY 90 days aspirin (Adult Low Dose Aspirin) 81 mg PO DAILY blood pressure test kit-large As directed fenofibrate 54 mg PO DAILY 90 days gabapentin 300 mg PO DAILY 90 days hydrochlorothiazide 25 mg PO BID 60 days lisinopril 40 mg PO BID Tobacco use date assessed: 09/20/23 Dental Screening Dental Screen Date: 09/20/23 Did you have a dental visit in the last 12 months?: No Did you have a dental problem in the last 6 months where you did not have access to dental care?: No Was dental information given to patient?: Patient has dentist HPI HPI Comments History of Present Illness Details This is a 48-year-old male with hypertension that has tele health visit by phone today complaining of body aches, sore throat and headaches that started today. Was positive for influenza A and Tamiflu was sent. He is compliant with his blood pressure medications Pap blood pressure was elevated today. [facility] Medical History (Updated 09/20/23 @ 15:20 by Franca Che MD) Restless leg Left elbow pain Hypertriglyceridemia Family history of colon cancer Right knee pain Left knee pain Right ankle pain Breast mass, right Lumbar degenerative disc disease Lumbosacral stenosis Pain in thoracic spine Muscle spasm Paresthesia of left arm Numbness and tingling of left side of face KAYLA (obstructive sleep apnea) Morbid obesity Bicuspid aortic valve Hypertension Surgical History History of vasectomy Family History Father HTN (hypertension) Mother HTN (hypertension) Diabetes Lupus Sister Thyroid cancer Maternal Grandfather Colon cancer Maternal Aunt Stomach cancer Social History Housing: House Alcohol intake: current Alcohol intake frequency: holidays/special occasions only Alcohol type: beer Patient Tobacco Use Status: Never used Tobacco e-Cigarette/Vaping Use: Never Used Second Hand Smoke Exposure: No service: No Current occupational status: employed Current occupational exposures/hazards: No Cognitive needs: No Hearing needs: No Vision needs: No Questionnaire PHQ-9 Over the last 2 weeks, how often have you been bothered by any of the following problems? 1. Little interest or pleasure in doing things: not at all 2. Feeling down, depressed, or hopeless: not at all 3. Trouble falling or staying asleep, or sleeping too much: not at all 4. Feeling tired or having little energy: not at all 5. Poor appetite or overeating: not at all 6. Feeling bad about yourself - or that you are a failure or have let yourself or your family down: not at all 7. Trouble concentrating on things, such as reading the newspaper or watching television: not at all 8. Moving or speaking so slowly that other people could have noticed. Or the opposite - being so fidgety or restless that you have been moving around a lot more than usual: not at all 9. Thoughts that you would be better off or of hurting yourself in some way: not at all Total score: 0 Depression Screening Interpretation: Negative Depression Screening Done: Yes 43255 - PHQ-9 Billing: Yes Source: Developed by Drs. Gerry Dent, Dorcas Ellington, Gerard Garcia and colleagues, with an educational kings from [employer]. Thrive Questionnaire Date Thrive assessed: 09/20/23 I am a: Patient What is your living situation today?: I have a steady place to live Within the past 12 months, did the food you bought not last and you didn't have the money to get more?: Never true Within the past 12 months, did you worry whether your food would run out before you got money to buy more?: Never true Do you have trouble paying for medicines?: No Do you have trouble getting transportation to medical appointments?: No Do you have trouble paying your heating and electricity bill?: No Do you have trouble taking care of your child, family member or friend?: No Do you have trouble with day-to-day activities such as bathing, preparing meals, shopping, managing finances, etc.?: No Are you currently unemployed and looking for a job?: No Are you interested in more education?: No Please select the resources that you would like help with: None AUDIT C Alcohol Use Questionnaire (AUDIT-C) 1. How often do you have a drink containing alcohol?: Monthly or less 2. How many drinks containing alcohol do you have on a typical day when you are drinking?: 1 or 2 3. How often do you have six or more drinks on one occasion?: Never Total Score: 1 JULIANNE-7 AMB Questionnaire JULIANNE-7 Date JULIANNE - 7 assessed: 09/20/23 Feeling nervous, anxious, or on edge: 0 = Not at all Not being able to stop or control worryin = Not at all Worrying too much about different things: 0 = Not at all Trouble relaxin = Not at all Being so restless that it is hard to sit still: 0 = Not at all Becoming easily annoyed or irritable: 0 = Not at all Feeling afraid as if something awful might happen: 0 = Not at all Total JULIANNE-7 score (0-4 normal; 5-9 mild; 10-14 moderate; 15-21 severe): 0 Source: Developed by Drs. Gerry Dent, Dorcas Ellington, Gerard Garcia and colleagues, with an educational kings from [employer]. JULIANNE-7 Assessment Billing JULIANNE-7 Assessment Tool: JULIANNE-7 Assessment 89490 Review of Systems Const All systems reviewed & are unremarkable except as noted in HPI and below Reports headache(s) Eyes Reports no additional complaints, Denies change in vision and Denies other visual disturbances ENT Reports headache(s) and Reports sore throat Card Denies chest pain at rest, Denies chest pain with activity, Denies edema, Denies irregular heart rhythm, Denies claudication, Denies dyspnea, Denies dyspnea on exertion, Denies orthopnea, Denies paroxysmal nocturnal dyspnea and Denies slow heart rate Resp Denies cough, Denies dyspnea and Denies dyspnea on exertion GI Denies abdominal pain, Denies change in bowel habits, Denies excessive flatus, Denies nausea and Denies vomiting Denies urinary hesitancy, Denies urinary incontinence and Denies urinary urgency Musc Denies abnormal gait, Denies atrophy, Denies deformity and Denies limited range of motion Skin/Breast Denies bleeding lesions, Denies changing lesions and Denies rash Neuro Denies abnormal gait, Reports headache(s) and Denies lack of coordination Physical exam (Primary Care) Tobacco/Smoking Status: Tobacco use Status Tobacco use date assessed 09/20/23 09/20/23 15:10 Patient Tobacco Use Status Never used Tobacco 09/20/23 15:10 e-Cigarette/Vaping Use Never Used 09/20/23 15:10 PHQ-9: PHQ-9 Score PHQ-9: Total score 0 09/20/23 15:10 Depression Screening Interpretation: Negative Thrive Assessment: Date of Thrive Assessment Date Thrive assessed 09/20/23 09/20/23 15:10 Telehealth Telehealth Location of provider rendering services: practice address Location of patient: address on file Patient Identification confirmed using: Name, : Yes Telehealth method: voice only Patient verbally consented to treatment: Yes Patient verbally consented to billing insurance company: Yes Patient informed of any privacy concerns related to visit: Yes Minutes spent on Phone/Video with Pt.: 15 Assessment and Plan Assessment & Plan (1) Hypertension: Code(s): I10 - Essential (primary) hypertension Qualifiers: Hypertension type: essential hypertension Qualified Code(s): I10 - Essential (primary) hypertension Plan: Continue hydrochlorothiazide, lisinopril and amlodipine. Blood pressure goal is equal or less than 130/80. (2) Influenza A: Code(s): J10.1 - Influenza due to other identified influenza virus with other respiratory manifestations Plan: Start Tamiflu. Medications: New oseltamivir (Tamiflu) 75 mg PO BID 5 days 10 caps 0RF Coding Level of Care Code Tele Est Pt Level 3 (59009) Diagnoses Essential hypertension I10 Hypertension type: essential hypertension Influenza A J10.1 Additional Codes JULIANNE-7 Assessment Billing - JULIANNE-7 Assessment Tool: JULIANNE-7 Assessment 84210 ([id number]) Time Spent (min) 15
[2023-09-20 15:16] VITALS: BP 151/91
== END 2023-09-20 16:17 | disposition home or self-care (01) ==
LOC: HO.HMGH 15:04
PROVIDERS: PCP Internal Medicine; Visit Provider Internal Medicine
DX: I10 Essential (primary) hypertension (principal); J10.1 Influenza due to other identified influenza virus with other respiratory manifestations
CPT/HCPCS: 99213

== ENCOUNTER 2023-12-20 15:09 | Outpatient (AMB) | payer OTHER, SELFPAY ==
--- NOTE | 2023-12-20 15:10 | MHC.PC.OV ---
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 Required: No Accompanied by: Self / Same As Patient Allergies No Known Allergies Allergy (Verified 12/20/23 15:32) Medication List - Last Reconciled 12/20/23 by Franca Che MD amlodipine 10 mg PO DAILY 90 days aspirin (Adult Low Dose Aspirin) 81 mg PO DAILY blood pressure test kit-large As directed fenofibrate 54 mg PO DAILY 90 days gabapentin 300 mg PO DAILY 90 days hydrochlorothiazide 50 mg (2 x 25 mg) PO BID lisinopril 40 mg PO BID Tobacco use date assessed: 09/20/23 Dental Screening Dental Screen Date: 09/20/23 HPI HPI Comments History of Present Illness Details This is a 48-year-old male with morbid obesity and chronic kidney disease stage 3a that comes today for his physical exam. He is morbidly obese with a BMI of 41.4 and declines weight loss surgery. Advised to do diet and exercise to reach BMI goal less than 30. Chronic kidney disease is follow by Nephrology. Last colonoscopy was 2022 showing tubular adenoma and hyperplastic polyp. He has elevated blood pressure and hydrochlorothiazide will be replaced with hydralazine 3 times a day. Blood pressure will be recheck in 3 weeks by nurse navigator. Blood pressure goal is equal or less than 130/80. [facility] Medical History Restless leg Left elbow pain Hypertriglyceridemia Family history of colon cancer Right knee pain Left knee pain Right ankle pain Breast mass, right Lumbar degenerative disc disease Lumbosacral stenosis Pain in thoracic spine Muscle spasm Paresthesia of left arm Numbness and tingling of left side of face KAYLA (obstructive sleep apnea) Morbid obesity Bicuspid aortic valve Hypertension Surgical History History of vasectomy Family History Father HTN (hypertension) Mother HTN (hypertension) Diabetes Lupus Sister Thyroid cancer Maternal Grandfather Colon cancer Maternal Aunt Stomach cancer Social History Housing: House Alcohol intake: current Alcohol intake frequency: holidays/special occasions only Alcohol type: beer Patient Tobacco Use Status: Never used Tobacco e-Cigarette/Vaping Use: Never Used Second Hand Smoke Exposure: No service: No Current occupational status: employed Current occupational exposures/hazards: No Cognitive needs: No Hearing needs: No Vision needs: No Questionnaire Thrive Questionnaire Date Thrive assessed: 09/20/23 JULIANNE-7 AMB Questionnaire JULIANNE-7 Date JULIANNE - 7 assessed: 09/20/23 Source: Developed by Drs. Gerry Dent, Dorcas Ellington, Gerard Garcia and colleagues, with an educational kings from [employer]. Review of Systems Const All systems reviewed & are unremarkable except as noted in HPI and below Eyes Reports no additional complaints, Denies change in vision and Denies other visual disturbances Card Denies chest pain at rest, Denies chest pain with activity, Denies edema, Denies irregular heart rhythm, Denies claudication, Denies dyspnea, Denies dyspnea on exertion, Denies orthopnea, Denies paroxysmal nocturnal dyspnea and Denies slow heart rate Resp Denies cough, Denies dyspnea and Denies dyspnea on exertion Physical exam (Primary Care) Vital Signs: Last Vital Signs BP 152/90 H 12/20/23 15:11 BMI result Body Mass Index 41.4 Tobacco/Smoking Status: Tobacco use Status Tobacco use date assessed 09/20/23 12/20/23 15:16 Patient Tobacco Use Status Never used Tobacco 12/20/23 15:16 e-Cigarette/Vaping Use Never Used 12/20/23 15:16 Thrive Assessment: Date of Thrive Assessment Date Thrive assessed 09/20/23 12/20/23 15:16 Const Orientation/consciousness: patient oriented x3 HENMT Head: Yes normal to inspection, Yes normocephalic and Yes atraumatic Ears: external ears normal Eyes General: appearance normal, both eyes and all related structures Eyelids: Yes eyelids normal Conjunctivae: conjunctivae normal Neck Neck: Yes normal visual inspection and Yes supple Resp Effort & Inspection: normal respiratory effort Auscultation: clear to auscultation bilaterally Cardio Jugular venous distension: no JVD Rate: regular rate Rhythm: regular rhythm Heart sounds: S1 normal heart sound present and S2 normal heart sound present GI Inspection: Yes normal to inspection Palpation (GI): Soft to palpation and nontender Auscultation: normal bowel sounds Skin General skin exam: no rashes or lesions noted Neuro General: patient oriented x3 and no focal motor deficits Extrem General: Yes full ROM Psych Appearance: grossly normal Assessment and Plan Assessment & Plan (1) Physical exam: Code(s): Z00.00 - Encounter for general adult medical examination without abnormal findings Plan: Repeat in a year. (2) CKD (chronic kidney disease) stage 3, GFR 30-59 ml/min: Code(s): N18.30 - Chronic kidney disease, stage 3 unspecified Qualifiers: Chronic kidney disease stage 3 subtype: stage 3a (GFR 45-59) Qualified Code(s): N18.31 - Chronic kidney disease, stage 3a Plan: Avoid NSAIDs. Follow-up with nephrology. (3) Morbid obesity: Code(s): E66.01 - Morbid (severe) obesity due to excess calories Plan: Continue diet and exercise. BMI goal is less than 30. Patient declines weight loss surgery. Orders: Orders Comprehensive [place]. Panel Fast Today Z00.00 - Encounter for general adult medical examination without abnormal findings Lipid Panel Today Z00.00 - Encounter for general adult medical examination without abnormal findings Medications: New hydralazine 25 mg PO TID 30 days 90 tabs 1RF Discontinued hydrochlorothiazide Discontinued Reason: No Longer Medically Relevant 50 mg (2 x 25 mg) PO BID 120 tabs 5RF Coding Level of Care Code Est Pt Prev Care 40-64y(68172) Diagnoses Physical exam Z00.00 Stage 3a chronic kidney disease N18.31 Chronic kidney disease stage 3 subtype: stage 3a (GFR 45-59) Morbid obesity E66.01 Time Spent (min) 32
[2023-12-20 15:11] VITALS: BP 152/90; BMI 41.4
== END 2023-12-20 15:47 | disposition home or self-care (01) ==
PROVIDERS: PCP Internal Medicine; Visit Provider Internal Medicine
DX: Z00.00 Encounter for general adult medical examination without abnormal findings (principal); I12.9 Hypertensive chronic kidney disease with stage 1 through stage 4 chronic kidney disease, or unspecified chronic kidney disease; N18.31 Chronic kidney disease, stage 3a; Z86.010 Personal history of colon polyps
CPT/HCPCS: 99396

== ENCOUNTER 2024-04-20 15:31 | Outpatient (AMB) | payer BC, SELFPAY ==
[2024-04-20 15:35] VITALS: BP 158/100; BMI 40.4
--- NOTE | 2024-04-20 15:35 | A.OFFPC_ITS ---
Vital Signs 04/20/24 15:35 04/22/24 08:03 Height 6 ft 3 in Weight 323 lb BMI 40.4 BP 158/100 H 160/100 H Blood Pressure Location Lt brachial Lt brachial Position Sitting Sitting Intake Visit Reasons: BP Intake Note: Patient here for a follow up bp Assistant To The Director Required: No Accompanied by: Self / Same As Patient Allergies No Known Allergies Allergy (Verified 04/20/24 15:53) Medication List - Last Reconciled 04/20/24 by Franca Che MD amlodipine 10 mg PO DAILY 90 days aspirin (Adult Low Dose Aspirin) 81 mg PO DAILY blood pressure test kit-large As directed fenofibrate 54 mg PO DAILY 90 days gabapentin 300 mg PO DAILY 90 days hydralazine 25 mg PO TID 30 days lisinopril 40 mg PO BID Tobacco use date assessed: 09/20/23 Dental Screening Dental Screen Date: 09/20/23 HPI HPI Comments History of Present Illness Details This is a 49-year-old male with morbid obesity, hypertension, hypertriglyceridemia and obstructive sleep apnea on CPAP that comes today for follow-up on his conditions. He is morbidly obese with a BMI of 40.4 and declines weight loss surgery. Has tried diet and exercise with no significant improvement. I will start him on Wegovy. On fibrates for hypertriglyceridemia. Blood pressure elevated and will be recheck in 3 weeks by nurse navigator. Chest pain or shortness on breath. [facility] Medical History Restless leg Left elbow pain Hypertriglyceridemia Family history of colon cancer Right knee pain Left knee pain Right ankle pain Breast mass, right Lumbar degenerative disc disease Lumbosacral stenosis Pain in thoracic spine Muscle spasm Paresthesia of left arm Numbness and tingling of left side of face KAYLA (obstructive sleep apnea) Morbid obesity Bicuspid aortic valve Hypertension Surgical History History of vasectomy Family History Father HTN (hypertension) Mother HTN (hypertension) Diabetes Lupus Sister Thyroid cancer Maternal Grandfather Colon cancer Maternal Aunt Stomach cancer Social History Housing: House Alcohol intake: current Alcohol intake frequency: holidays/special occasions only Alcohol type: beer Patient Tobacco Use Status: Never used Tobacco e-Cigarette/Vaping Use: Never Used Second Hand Smoke Exposure: No service: No Current occupational status: employed Current occupational exposures/hazards: No Cognitive needs: No Hearing needs: No Vision needs: No Questionnaire Thrive Questionnaire Date Thrive assessed: 09/20/23 JULIANNE-7 AMB Questionnaire JULIANNE-7 Date JULIANNE - 7 assessed: 09/20/23 Source: Developed by Drs. Gerry Dent, Dorcas Ellington, Gerard Garcia and colleagues, with an educational kings from [employer]. Review of Systems Const All systems reviewed & are unremarkable except as noted in HPI and below Card Denies chest pain at rest, Denies chest pain with activity, Denies edema, Denies irregular heart rhythm, Denies claudication, Denies dyspnea, Denies dyspnea on exertion, Denies orthopnea, Denies paroxysmal nocturnal dyspnea and Denies slow heart rate Resp Denies cough, Denies dyspnea and Denies dyspnea on exertion GI Denies abdominal pain, Denies change in bowel habits, Denies excessive flatus, Denies nausea and Denies vomiting Denies urinary hesitancy, Denies urinary incontinence and Denies urinary urgency Musc Denies abnormal gait, Denies atrophy, Denies deformity and Denies limited range of motion Skin/Breast Denies bleeding lesions, Denies changing lesions and Denies rash Neuro Denies abnormal gait and Denies lack of coordination Physical exam (Primary Care) Vital Signs: Last Vital Signs BP 158/100 H 04/20/24 15:35 BMI result Body Mass Index 40.4 BMI Assessment/Plan discussion: High BMI High, discussed plan: lifestyle, weight reduction, dietary and physical activity Tobacco/Smoking Status: Tobacco use Status Tobacco use date assessed 09/20/23 04/20/24 15:42 Patient Tobacco Use Status Never used Tobacco 04/20/24 15:42 e-Cigarette/Vaping Use Never Used 04/20/24 15:42 Thrive Assessment: Date of Thrive Assessment Date Thrive assessed 09/20/23 04/20/24 15:42 Resp Effort & Inspection: normal respiratory effort Auscultation: clear to auscultation bilaterally Cardio Jugular venous distension: no JVD Rate: regular rate Rhythm: regular rhythm Heart sounds: S1 normal heart sound present and S2 normal heart sound present Extrem General: Yes full ROM Assessment and Plan Assessment & Plan (1) KAYLA on CPAP: Code(s): G47.33 - Obstructive sleep apnea (adult) (pediatric) Plan: Continue CPAP. (2) Hypertriglyceridemia: Code(s): E78.1 - Pure hyperglyceridemia Plan: Continue fibrates. (3) Morbid obesity: Code(s): E66.01 - Morbid (severe) obesity due to excess calories Plan: Start Wegovy. BMI goal is less than 30. (4) Hypertension: Code(s): I10 - Essential (primary) hypertension Qualifiers: Hypertension type: essential hypertension Qualified Code(s): I10 - Essential (primary) hypertension Plan: Continue amlodipine, lisinopril and hydralazine. Blood pressure goal is equal or less than 130/80. Recheck blood pressure with nurse navigator in 3 weeks. Orders: Orders Comprehensive [place]. Panel Fast 04/20/24 N18.31 - Chronic kidney disease, stage 3a Lipid Panel 04/20/24 E78.1 - Pure hyperglyceridemia, E78.5 - Hyperlipidemia, unspecified Medications: New semaglutide (weight loss) (Wegovy) administer weeks 1 through 4 of therapy 0.25 mg (0.5 mL) subcut QWEEK 4 weeks 2 mL 0RF E66.01 - Morbid (severe) obesity due to excess calories Coding Level of Care Code Est Pt Level 4 (76985) Complex EM visit Add On G2211 Diagnoses KAYLA on CPAP G47.33 Hypertriglyceridemia E78.1 Morbid obesity E66.01 Essential hypertension I10 Hypertension type: essential hypertension Time Spent (min) 23
[2024-04-22 08:03] VITALS: BP 160/100
== END 2024-04-20 16:00 | disposition home or self-care (01) ==
PROVIDERS: PCP Internal Medicine; Visit Provider Internal Medicine
DX: G47.33 Obstructive sleep apnea (adult) (pediatric) (principal); E78.1 Pure hyperglyceridemia; E66.01 Morbid (severe) obesity due to excess calories; Z68.41 Body mass index [BMI] 40.0-44.9, adult; I10 Essential (primary) hypertension
CPT/HCPCS: 99214

== ENCOUNTER 2024-07-03 14:59 | Outpatient (AMB) | payer BC, SELFPAY ==
[2024-07-03 15:21] VITALS: BP 140/76; PULSE 69; BMI 40.5
--- NOTE | 2024-07-03 15:21 | MHC.OFFVIS ---
Vital Signs 07/03/24 15:21 Height 6 ft 3 in Weight 324 lb 1.272 oz BMI 40.5 BP 140/76 H Blood Pressure Location Lt brachial Position Sitting Pulse 69 Pulse Source Monitor Intake Visit Reasons: over due-f/up Intake Note: pt is here for overdue f/up- pt state that he had chest pressure last week for about a week. Director Of Litigation Required: Yes Director Of Litigation Language: Product Marketing Analyst Name: [email or web address] [id number] Accompanied by: Daughter Allergies No Known Allergies Allergy (Verified 04/20/24 15:53) Medication List - Last Reconciled 07/03/24 by Terry Driver MD amlodipine 10 mg PO DAILY 90 days aspirin (Adult Low Dose Aspirin) 81 mg PO DAILY blood pressure test kit-large As directed fenofibrate 54 mg PO DAILY 90 days gabapentin 300 mg PO DAILY 90 days hydralazine 25 mg PO TID 30 days lisinopril 40 mg PO BID semaglutide (weight loss) (Wegovy) 0.25 mg (0.5 mL) subcut QWEEK 4 weeks HPI Comments Details: 49-year-old gentleman here for follow-up. He has background history of hypertension and bicuspid aortic valve. No stenosis or regurgitation. Follow-up his blood pressure is elevated. He said he went to the dentist a week ago and was also told that his blood pressure is quite high and was sent back home. Denying any symptoms otherwise. He is watching salt in his diet. He does not drink alcohol regularly. Uses NSAIDs quite rarely. He is saying that he has daytime sleepiness despite using his CPAP mask. He has gained more weight. 06/09/23: HE is here for f/u. BP little better after increasing lisinopril to 40 mg BID. He is complaining of mid day fatigue and sleepiness. His last sleep study was 4 years ago. 07/03/2024: He is here for follow-up. He has had 2 weeks ago he had 1 week long episode of chest discomfort. He is describing central chest discomfort which was there 29/03 for 1 week. He said he has spontaneously improved after that. His blood pressure has been elevated. It appears he saw his primary care physician and his hydrochlorothiazide was stopped and he was started on hydralazine 25 mg 3 times a day. He is saying he has been taking that regularly. [facility] Medical History Restless leg Left elbow pain Hypertriglyceridemia Family history of colon cancer Right knee pain Left knee pain Right ankle pain Breast mass, right Lumbar degenerative disc disease Lumbosacral stenosis Pain in thoracic spine Muscle spasm Paresthesia of left arm Numbness and tingling of left side of face KAYLA (obstructive sleep apnea) Morbid obesity Bicuspid aortic valve Hypertension Surgical History History of vasectomy Family History Father HTN (hypertension) Mother HTN (hypertension) Diabetes Lupus Sister Thyroid cancer Maternal Grandfather Colon cancer Maternal Aunt Stomach cancer Social History Housing: House Alcohol intake: current Alcohol intake frequency: holidays/special occasions only Alcohol type: beer Patient Tobacco Use Status: Never used Tobacco e-Cigarette/Vaping Use: Never Used Second Hand Smoke Exposure: No service: No Current occupational status: employed Current occupational exposures/hazards: No Cognitive needs: No Hearing needs: No Vision needs: No Review of Systems Const Denies chills, Denies fatigue, Denies fever(s), Denies frequent falls, Denies weakness, Denies weight gain and Denies weight loss ENT Denies dizziness Card Denies chest pain, Denies leg edema, Denies lightheadedness, Denies palpitations, Denies dyspnea and Denies dyspnea on exertion Resp Denies cough, Denies dyspnea and Denies dyspnea on exertion GI Denies hematochezia Musc Denies abnormal gait, Denies muscle weakness, Denies numbness, Denies radiating pain into limb and Denies tingling Neuro Denies abnormal gait, Denies dizziness, Denies frequent falls, Denies numbness, Denies tingling and Denies weakness Endo Denies fatigue and Denies palpitations Physical Exam Vital Signs: Last Vital Signs Pulse 69 07/03/24 15:21 BP 140/76 H 07/03/24 15:21 BMI result Body Mass Index 40.5 GENERAL APPEARANCE: in no acute distress, pleasant. NECK: no carotid bruit, no jugular venous distention. SKIN: no suspicious lesions, warm and dry. HEART: no murmurs, regular rate and rhythm. LUNGS: clear to auscultation bilaterally. ABDOMEN: soft, nontender. EXTREMITIES: no edema. PERIPHERAL PULSES: equal. NEUROLOGIC: No gross deficits, AAO X 3 Office Procedures EKG Details: Sinus rhythm 69 beats per minute, normal axis, normal ECG, QTC 430 milliseconds. [id number], Complete Assessment & Plan Assessment & Plan (1) Hypertension: Code(s): I10 - Essential (primary) hypertension Category: Medical Qualifiers: Hypertension type: essential hypertension Qualified Code(s): I10 - Essential (primary) hypertension (2) Bicuspid aortic valve: Comment: Bicuspid aortic valve without any significant stenosis or regurgitation. Code(s): Q23.1 - Congenital insufficiency of aortic valve Category: Medical Plan Pleasant 49 year gentleman with bicuspid aortic valve without any stenosis or regurgitation and hypertension. Blood pressure is elevated. I have advised him to increase hydralazine to 50 mg 3 times a day. He is taking lisinopril 40 mg twice a day and amlodipine 10 mg daily. He had an episode of chest discomfort lasting for 1 week. This seems quite atypical for coronary disease. He has no symptoms with activity. His EKGs normal. I think his symptoms are likely due to indigestion/GERD. If he had any exertional symptoms then we will arrange stress testing for him. He will see us back in few months. Thank you for allowing me to participate in the care of your patient. Please feel free to contact me if you have any questions. Medications: New hydralazine 50 mg PO TID 180 tabs 4RF Discontinued hydralazine Discontinued Reason: Doctor's Order 25 mg PO TID 30 days 90 tabs 1RF Coding Level of Care Code Est Pt Level 4 (04214) Diagnoses Essential hypertension I10 Hypertension type: essential hypertension Bicuspid aortic valve Q23.1 CPT Codes EKG - CPT: 12516-[id number], Complete ([id number])
== END 2024-07-03 15:51 | disposition home or self-care (01) ==
PROVIDERS: PCP Internal Medicine; Visit Provider Internal Medicine Cardiovascular Disease
DX: I10 Essential (primary) hypertension (principal); Q23.1 Congenital insufficiency of aortic valve
CPT/HCPCS: 93010; 99214

== ENCOUNTER → 2024-07-03 14:59 | Outpatient (BNVA) | payer BC, SELFPAY | PROVIDERS: PCP Internal Medicine; Visit Provider Internal Medicine Cardiovascular Disease | DX: I10 Essential (primary) hypertension (principal); Q23.1 Congenital insufficiency of aortic valve; Z79.899 Other long term (current) drug therapy | CPT/HCPCS: 93005 ==

== ENCOUNTER 2024-08-19 08:39 | Outpatient (REF) | payer BC, SELFPAY ==
[2024-08-19 09:41] LABS: Appearance Urine Clear; Color Urine Yellow; Glucose Urine UA Negative (Negative); Leukocyte Esterase Urine Negative (Negative); Nitrite Urine Negative (Negative); Urine Blood Negative (Negative); Urine Ketones Negative (Negative); Urine Protein Negative (Neg-Trace)
[2024-08-19 10:12] LABS: Alanine Aminotransferase 28 U/L (0-40); Albumin Level 4.3 g/dL (3.5-5.0); Alkaline Phosphatase 66 U/L (39-117); Anion Gap 12 (12-20); Aspartate Amino Transferase 20 U/L (5-37); Bilirubin Total 0.4 mg/dL (0.0-1.0); Blood Urea Nitrogen 15 mg/dL (9-16); Calcium 9.2 mg/dL (8.4-10.2); Carbon Dioxide 26 mmol/L (22-29); Chloride 109 mmol/L (96-108); Cholesterol 186 mg/dL (<200); Estimated Glomerular Filt Rate > 60; Glucose Fasting 117 mg/dL (60-99); Glucose Random 117 mg/dL (60-115); HDL Cholesterol 41 mg/dL (>40); LDL Cholesterol Calculated 126 mg/dL (<100); Potassium 4.3 mmol/L (3.3-5.1); Sodium 143 mmol/L (135-145); Total Protein 7.6 g/dL (6.5-8.0); Triglycerides 98 mg/dL (<150)
[2024-08-19 11:31] LABS: Creatinine Urine 202.16 mg/dL; Total Protein Urine Random < 7 mg/dL (<12)
== END 2024-08-19 08:40 | disposition home or self-care (01) ==
LOC: HO.LAB 08:39
PROVIDERS: PCP Internal Medicine; Referring Provider Internal Medicine; Visit Provider Internal Medicine Hypertension Specialist
DX: Z00.00 Encounter for general adult medical examination without abnormal findings (principal); R79.89 Other specified abnormal findings of blood chemistry; E78.5 Hyperlipidemia, unspecified; E78.1 Pure hyperglyceridemia; I12.9 Hypertensive chronic kidney disease with stage 1 through stage 4 chronic kidney disease, or unspecified chronic kidney disease; N18.31 Chronic kidney disease, stage 3a
CPT/HCPCS: 36415; 80048; 80053; 80061; 81003; 82570; 84156

== ENCOUNTER 2024-08-21 15:53 | Outpatient (AMB) | payer BC, SELFPAY ==
[2024-08-21 16:08] VITALS: BP 142/76; PULSE 71; O2SAT 94; BMI 39.9
--- NOTE | 2024-08-21 16:08 | HO.NEPHOV_ITS ---
Vital Signs 08/21/24 16:08 08/21/24 16:19 Height 6 ft 3 in Weight 319 lb BMI 39.9 BP 142/76 H 136/74 Blood Pressure Location Lt brachial Lt brachial Position Sitting Sitting Pulse 71 Pulse Source Pulse Oximeter Pulse Oximetry (%) 94 Oxygen Delivery Method Room Air Intake Visit Reasons: Pt missed 07/17/24 appointment/ LVM Help Desk Supervisor Required: No Accompanied by: Spouse Allergies No Known Allergies Allergy (Verified 08/21/24 16:10) Medication List - Last Reconciled 08/21/24 by Terry Brock MD amlodipine 10 mg PO DAILY 90 days aspirin (Adult Low Dose Aspirin) 81 mg PO DAILY blood pressure test kit-large As directed fenofibrate 54 mg PO DAILY 90 days gabapentin 300 mg PO DAILY 90 days hydralazine 50 mg PO TID lisinopril 40 mg PO BID semaglutide (weight loss) (Wegovy) 0.5 mg (0.5 mL) subcut QWEEK 4 weeks HPI Comments Details: 48-year-old man with a history of obesity hypertension has been referred for chronic disease. His baseline creatinine is around 1.2 mg/dL. About 3 months ago creatinine bumped to 1.5 mg/dL which has prompted return to the baseline of 1.2. He has history of kidney stones. He has undergone stent placement back in [place] a few years ago. He is here for further evaluation. He has undergone a 24 hour urine collection. 08/21/2024. Overall is doing well. He has been taking hydralazine 50 mg 2 times a day instead of 3 times a day because he has been feeling dizzy. He is waiting to start we go before weight loss. [facility] Medical History Restless leg Left elbow pain Hypertriglyceridemia Family history of colon cancer Right knee pain Left knee pain Right ankle pain Breast mass, right Lumbar degenerative disc disease Lumbosacral stenosis Pain in thoracic spine Muscle spasm Paresthesia of left arm Numbness and tingling of left side of face KAYLA (obstructive sleep apnea) Morbid obesity Bicuspid aortic valve Hypertension Surgical History History of vasectomy Family History Father HTN (hypertension) Mother HTN (hypertension) Diabetes Lupus Sister Thyroid cancer Maternal Grandfather Colon cancer Maternal Aunt Stomach cancer Social History Housing: House Alcohol intake: current Alcohol intake frequency: holidays/special occasions only Alcohol type: beer Patient Tobacco Use Status: Never used Tobacco e-Cigarette/Vaping Use: Never Used Second Hand Smoke Exposure: No service: No Current occupational status: employed Current occupational exposures/hazards: No Cognitive needs: No Hearing needs: No Vision needs: No Physical Exam Vital Signs: Last Vital Signs Pulse 71 08/21/24 16:08 BP 136/74 08/21/24 16:19 Pulse Ox 94 08/21/24 16:08 Oxygen Delivery Method Room Air 08/21/24 16:08 BMI result Body Mass Index 39.9 Comfortable Neck supple no JVD. Lungs entry equal no rales. Heart S1-S2 heard no gallop or rub. Abdomen soft nontender. Neuro alert awake oriented. No asterixis. Extremities no edema. Results Reviewed Nephrology Results: Sodium 143 mmol/L (135-145) 08/19/24 Potassium 4.3 mmol/L (3.3-5.1) 08/19/24 Chloride 109 mmol/L (96-108) H 08/19/24 Carbon Dioxide 26 mmol/L (22-29) 08/19/24 BUN 15 mg/dL (9-16) 08/19/24 Creatinine 1.14 mg/dL (0.5-1.4) 08/19/24 Calcium 9.2 mg/dL (8.4-10.2) 08/19/24 Urine Protein Negative mg/dL (Neg-Trace) 08/19/24 Urine Creatinine 202.16 mg/dL 08/19/24 Assessment & Plan Assessment & Plan (1) Hypertension: Code(s): I10 - Essential (primary) hypertension Category: Medical Qualifiers: Hypertension type: essential hypertension Qualified Code(s): I10 - Essential (primary) hypertension Plan: Blood pressure is well controlled. He should stay on low-sodium diet. We discussed weight loss and increasing physical activity. Continue with current antihypertensive regimen. Since he has been taking hydralazine 50 mg 2 times a day instead of 3 times a day due to dizziness, I will change it to 25 mg 3 times a day. As he starts losing weight after starting Wegovy I expect the blood pressure to decrease in therefore encouraged him to keep monitoring his blood pressure at home. Based on home blood pressure reading we can gradually taper antihypertensives as needed. (2) Nephrolithiasis: Code(s): N20.0 - Calculus of kidney Category: Medical Plan: Currently asymptomatic. 24 hour urine collection showed normal excretions of calcium, oxalate, citric acid. Urinary sodium excretion was significantly elevated at 307. We discussed importance of a low-salt diet. Urine volume is adequate at 2.1 L. He should continue drinking adequate fluids to maintain a urine output of at least 2 L per 24 hours. (3) Elevated serum creatinine: Code(s): R79.89 - Other specified abnormal findings of blood chemistry Category: Medical Plan: [place] has elevated serum creatinine and his baseline creatinine is around 1.2 to 1.3 mg/dL. He probably sustained acute kidney injury in April with a creatinine bumping up to 1.5 mg/dL. This may be due to hypoperfusion most likely from volume depletion. He admits to not drinking enough fluids during that time. 24 hour urine collection showed elevated urinary creatinine excretion and creatinine clearance was normal at 128 mL/minute. The EGFR is spuriously low at 50 mL/minute. Medications: Changed From hydralazine 50 mg PO TID 180 tabs 4RF To hydralazine 25 mg PO TID 180 tabs 3RF Refilled hydralazine 25 mg PO TID 180 tabs 3RF Coding Level of Care Code Tele Est Pt Level 4 (42526) Diagnoses Essential hypertension I10 Hypertension type: essential hypertension Nephrolithiasis N20.0 Elevated serum creatinine R79.89
[2024-08-21 16:19] VITALS: BP 136/74
== END 2024-08-21 16:23 | disposition home or self-care (01) ==
PROVIDERS: PCP Internal Medicine; Visit Provider Internal Medicine Hypertension Specialist
DX: I10 Essential (primary) hypertension (principal); N20.0 Calculus of kidney; R79.89 Other specified abnormal findings of blood chemistry
CPT/HCPCS: 99214

== ENCOUNTER 2025-04-17 13:38 | Emergency (ER) | payer BC, SELFPAY ==
--- NOTE | 2025-04-17 | ECG_ITS ---
Test Reason : chest pain Blood Pressure : */* mmHG Vent. Rate : 87 BPM Atrial Rate : 87 BPM P-R Int : 148 ms QRS Dur : 90 ms QT Int : 368 ms P-R-T Axes : 44 73 46 degrees QTcB Int : 442 ms Normal sinus rhythm Possible Left atrial enlargement Borderline ECG When compared with ECG of 10-Jan-2020 10:56, No significant change was found Referred By: Generic ED Physician Electronically Signed By: Terry Driver
--- NOTE | ~2025-04-17 | XR_ITS ---
EXAMINATION: XR CHEST CLINICAL INFORMATION: chest pain, palpitations COMPARISON: January 10, 2020 TECHNIQUE: 2 views of the chest were obtained. FINDINGS: No hyperinflation. No consolidation, pleural effusion or pneumothorax. Cardiomediastinal silhouette size is normal. Multilevel thoracic spondylosis. Patient's large body habitus. XR/XR chest 2V IMPRESSION: No acute airspace disease. Electronically signed by: Nathen Elena MD 04/17/2025 02:00 PM EDT
--- NOTE | 2025-04-17 13:45 | ED.GENADULT ---
HPI - General Adult General Chief complaint: Chest Pain Stated complaint: Chest pressure Time Seen by Provider: 04/17/25 14:20 Source: patient Mode of arrival: ambulatory Limitations: no limitations History of Present Illness ED Provider: Dr. Anny Bishop HPI narrative: Patient comes to the emergency room complaining of chest pressure and palpitations for the last 4 hours. Patient states that earlier today he started feeling palpitations and they were very strong, he got anxious and came to the emergency room. At this time, patient states that the chest pressure significantly improved, no longer having palpitations. Denies shortness of breath. Patient has blood pressure on arrival was in the 180s systolic. Patient takes that he is compliant with his medications, usually takes hydrochlorothiazide, amlodipine and lisinopril. Patient states that he is compliant with his meds. Related Data Previous Rx's ?Medication ?Instructions ?Recorded blood pressure test kit-large #1 ea 02/22/23 gabapentin 300 mg capsule 300 mg PO DAILY 90 days #90 caps 08/31/23 lisinopril 40 mg tablet 40 mg PO BID #90 tabs 05/15/24 amlodipine 10 mg tablet 10 mg PO DAILY 90 days #90 tabs 05/25/24 semaglutide (weight loss) 0.5 0.5 mg (0.5 mL) subcut QWEEK 4 08/15/24 mg/0.5 mL subcutaneous pen weeks #2 mL injector (Wegovy) fenofibrate 54 mg tablet 54 mg PO DAILY 90 days #90 tabs 08/21/24 hydralazine 25 mg tablet 25 mg PO TID #180 tabs 08/21/24 aspirin 81 mg tablet,delayed 81 mg PO DAILY #90 tabs 12/03/24 release (Adult Low Dose Aspirin) Allergies Allergy/AdvReac Type Severity Reaction Status Date / Time No Known Allergies Allergy Verified 04/17/25 13:48 Review of Systems Review of Systems: Constitutional : No Weight loss, No Fever, No Chills, No Night Sweats, No Fatigue, No Malaise ENT/Mouth : No Hearing loss, No Ear Pain, No Nasal Congestion, No Sinus Pain, No Hoarseness, No sore throat, No Rhinorrhea, No Swallowing Difficulty Eyes: No Eye Pain, No Swelling, No Redness, No Foreign Body, No Discharge, No Vision Changes Cardiovascular : Complaining of chest pressure without Chest Pain, No SOB, No Dyspnea on Exertion, No Orthopnea, No Edema, complaining of Palpitations Respiratory : No Cough, No Sputum, No Wheezing, No Smoke Exposure, No Dyspnea Gastrointestinal : No Nausea, No Vomiting, No Diarrhea, No Constipation, No abdominal Pain, No Hematochezia, No Melena Genitourinary : no irregular bleeding, No Dysuria, No Urinary Frequency, No Hematuria, No Urinary Incontinence, No Urgency, No Flank Pain, No Urinary Flow Changes, No Hesitancy Musculoskeletal : No joint pain, No Myalgias, No Joint Swelling Skin : No Skin Lesions, No rash Neuro : No Weakness, No Numbness, No Paresthesias, No Loss of Consciousness, No Dizziness, No Headache Psych : No Anxiety/Panic, No Depression, No SI/HI/AH/VH, No Social Issues, Heme/Lymph: No Bruising, No Bleeding,No Lymphadenopathy Endocrine : No Polyuria, No Polydipsia, No Temperature Intolerance PMFSH Past Medical History Medical History Restless leg Left elbow pain Hypertriglyceridemia Family history of colon cancer Right knee pain Left knee pain Right ankle pain Breast mass, right Lumbar degenerative disc disease Lumbosacral stenosis Pain in thoracic spine Muscle spasm Paresthesia of left arm Numbness and tingling of left side of face KAYLA (obstructive sleep apnea) Morbid obesity Bicuspid aortic valve Hypertension Surgical History History of vasectomy Family History Family History Father HTN (hypertension) Mother HTN (hypertension) Diabetes Lupus Sister Thyroid cancer Maternal Grandfather Colon cancer Maternal Aunt Stomach cancer Social History Social History Housing: House Alcohol intake: current Alcohol intake frequency: holidays/special occasions only Alcohol type: beer Patient Tobacco Use Status: Never used Tobacco e-Cigarette/Vaping Use: Never Used Second Hand Smoke Exposure: No Advance Directives: No Advance Directives Information Provided: Yes Do you have a plan to hurt others: No Plan service: No Current occupational status: employed Current occupational exposures/hazards: No Cognitive needs: No Hearing needs: No Vision needs: No Physical Exam ED Exam Exam: Appearance: Alert. Oriented X3. No acute distress. Eyes: Pupils equal, round and reactive to light. ENT: Pharynx normal. Neck: Normal inspection. Neck supple. No lymph nodes noted. No crepitus CVS: Normal heart rate and rhythm. Pulses normal. Normal S1 and S2 Respiratory: No respiratory distress. Breath sounds normal. No Wheezing. No rales Abdomen: Soft and nontender. No rigidity. No distention. Skin: Skin warm and dry. Normal skin color. Normal skin turgor. Extremities: No lower extremity edema. No Lacerations. No Rash Neuro: Oriented X 3. No motor deficit. No sensory deficit. Moving all extremities. No slurred speech. CN 2 through 12 grossly intact Psych: calm, cooperative, normal affect Vital Signs: Vital Signs - 24 hr 04/17/25 13:46 04/17/25 14:31 Temperature 98.6 F Pulse Rate 88 103 H Respiratory Rate 16 16 Blood Pressure 185/90 H 152/93 H Pulse Oximetry 95 97 Oxygen Delivery Method Room Air Room Air BMI result Body Mass Index 40.4 Course Course Course Narrative: Rapid medical examination performed in triage by Rosemary Gaston PA-C. Patient is a 50 year old assigned male at presenting to the emergency department with chest pain and palpitations. Patient states over the last few hours he has had chest pain and feeling as though his pulse is racing. Detailed physical exam and review of systems are deferred to the ammonia distiller. EKG, labs, imaging, swabs ordered. Patient placed back in the waiting room pending room availability and results. Medical Decision Making Medical Decision Making [facility] Narrative: My interpretation of EKG: Normal sinus rhythm, heart rate 87, no ST segment depression or elevation, no T-wave inversion, QTC 442 My interpretation of labs: No significant abnormality in patient's hematology, chemistry within normal limits, troponin negative Chest x-ray does not show any acute abnormalities Patient has been on the monitor, no arrhythmias have been detected. Patient's blood pressure was a bit elevated on arrival, however, slowly decreasing. Patient states that he gets anxious when he comes to the hospital. Patient's blood pressure now 152/93. I discussed with the patient that if he continues having episodes of palpitations, he would benefit from a Holter monitor evaluation. Differential Diagnosis Differential Diagnoses: The differential diagnosis associated with the presentation includes (ACS, anxiety, palpitations, arrhythmias) Admission/Observation Consideration of admission/observation: Escalation of care including admission/observation considered (Given patient's age and symptoms, observation was considered) Lab Data MDM Lab Attestation statement: I reviewed the patient's lab results. 04/17/25 14:12 04/17/25 14:12 Labs: Lab Results 04/17/25 Range/Units 14:12 WBC 8.1 (4.8-10.8) X10*3/uL RBC 5.33 (4.60-5.80) X10*6/uL Hgb 15.4 (14.0-18.0) g/dl Hct 43.3 (42.0-52.0) % MCV 81.2 (80.0-98.0) fL MCH 28.9 (27.0-33.0) pg MCHC 35.6 (31.0-36.0) g/dl RDW 12.7 (11.0-16.0) % Plt Count 187 (160-400) X10*3/uL MPV 11.7 (9.4-12.4) fL Immature Gran % (Auto) 0.2 (0.0-0.4) % Neut % (Auto) 71.0 (45-73) % Lymph % (Auto) 22.2 (20-40) % Bradford % (Auto) 5.1 (2-11) % Eos % (Auto) 1.0 (0-4) % Baso % (Auto) 0.5 (0-2) % Lymph # (Auto) 1.8 (1.2-4.9) X10*3/uL Bradford # (Auto) 0.4 (0.1-1.2) X10*3/uL Eos # (Auto) 0.1 (0.0-0.4) X10*3/uL Baso # (Auto) 0.0 (0.0-0.2) X10*3/uL Abs Immat Gran (auto) 0.02 (0.00-0.03) X10*3/uL Absolute Neuts (auto) 5.8 (2.0-8.3) x10*3/uL Absolute Nucleated RBC 0.000 (0.0-0.012) X10*3/uL Nucleated RBC % (auto) 0.0 (0.0-0.2) /100WBC PT 11.5 (10.9-12.4) SEC INR 1.0 (0.9-1.1) Sodium 141 (135-145) mmol/L Potassium 3.9 (3.3-5.1) mmol/L Chloride 105 (96-108) mmol/L Carbon Dioxide 25 (22-29) mmol/L Anion Gap 15 (12-20) BUN 16 (9-16) mg/dL Creatinine 1.21 (0.5-1.4) mg/dL Estim Creat Clear Calc 114.1 Estimated GFR > 60 Random Glucose 164 H (60-115) mg/dL Calcium 9.4 (8.4-10.2) mg/dL Magnesium 2.0 (1.6-2.6) mg/dL Total Bilirubin 0.6 (0.0-1.0) mg/dL AST 26 (5-37) U/L ALT 35 (0-40) U/L Alkaline Phosphatase 87 (39-117) U/L Troponin I High Sens < 2.7 (<3.5-35.0) ng/L Total Protein 7.8 (6.5-8.0) g/dL Albumin 4.6 (3.5-5.0) g/dL Independent Interpretation I performed an independent interpretation of an: EKG and Plain X-Ray Radiology Impression Discussion of test interpretation with radiology: I have reviewed the radiologist's reading. Radiologist Impression: No hyperinflation. No consolidation, pleural effusion or pneumothorax. Cardiomediastinal silhouette size is normal. Multilevel thoracic spondylosis. Patient's large body habitus. Scores Heart Score History: -0- slightly suspicious ECG: -0- normal Age: -1- >45 - <65 Risk factory: -1- 1 or 2 risk factors Troponin: -0- < or = normal limit Score: 2 Risk: 1.7% Critical Care Time Critical Care Time Critical Care Time: Yes Total Critical Care Time: 35 Attestation: I have personally provided critical care time. Time includes review of lab data, radiology results, discussion with consultants, and monitoring for potential decompensation. Intervention performed as documented. Discharge Plan Discharge Clinical Impression: Palpitations Patient Disposition: Home, Self-Care Instructions: Heart Palpitations (ED) Additional Instructions: Please follow-up with your primary care physician tomorrow. If you have any worsening or new symptoms, please return to the emergency room or call 911 Prescriptions: No Action lisinopril 40 mg tablet 40 mg PO BID Qty: 90 3RF amlodipine 10 mg tablet 10 mg PO DAILY 90 Days Qty: 90 3RF Wegovy 0.5 mg/0.5 mL pen injector 0.5 mg subcut QWEEK 28 Days Qty: 2 0RF Rx Instructions: administer weeks 5 through 8 of therapy fenofibrate 54 mg tablet 54 mg PO DAILY 90 Days Qty: 90 1RF aspirin [Adult Low Dose Aspirin] 81 mg tablet,delayed release (DR/EC) 81 mg PO DAILY Qty: 90 2RF (DME) blood pressure test kit-large Kit See Rx Instructions .Route Qty: 1 0RF Rx Instructions: As directed gabapentin 300 mg capsule 300 mg PO DAILY 90 Days Qty: 90 1RF hydralazine 25 mg tablet 25 mg PO TID Qty: 180 3RF Print Language: [place] Island[place]
[2025-04-17 13:46] VITALS: BP 185/90; PULSE 88; RESP 16; TEMP 37; O2SAT 95; BMI 40.4
[2025-04-17 14:16] LABS: MANUAL DIFF FLAG NO
[2025-04-17 14:19] LABS: Hematocrit 43.3 % (42.0-52.0); Hemoglobin 15.4 g/dl (14.0-18.0); Imm Gran Abs Auto 0.02 X10*3/uL (0.00-0.03); Imm Gran Pct Auto 0.2 % (0.0-0.4); Lymphocytes Absolute Auto 1.8 X10*3/uL (1.2-4.9); Mean Corpuscular HGB Conc 35.6 g/dl (31.0-36.0); Mean Corpuscular Hemoglobin 28.9 pg (27.0-33.0); Mean Corpuscular Volume 81.2 fL (80.0-98.0); NRBC Abs Auto 0.000 X10*3/uL (0.0-0.012); NRBC Pct Auto 0.0 /100WBC (0.0-0.2); Platelet Count 187 X10*3/uL (160-400); Red Blood Count 5.33 X10*6/uL (4.60-5.80); White Blood Count 8.1 X10*3/uL (4.8-10.8)
[2025-04-17 14:25] LABS: INTERNATIONAL NORM RATIO 1.0 (0.9-1.1); Prothrombin Time 11.5 SEC (10.9-12.4)
[2025-04-17 14:31] VITALS: BP 157/87; PULSE 76; RESP 16; TEMP 36.9; O2SAT 95
[2025-04-17 14:33] LABS: Alanine Aminotransferase 35 U/L (0-40); Albumin Level 4.6 g/dL (3.5-5.0); Alkaline Phosphatase 87 U/L (39-117); Anion Gap 15 (12-20); Aspartate Amino Transferase 26 U/L (5-37); Blood Urea Nitrogen 16 mg/dL (9-16); Calcium 9.4 mg/dL (8.4-10.2); Carbon Dioxide 25 mmol/L (22-29); Chloride 105 mmol/L (96-108); Creatinine Clr Calc Pharmacy 114.1; Estimated Glomerular Filt Rate > 60; Magnesium 2.0 mg/dL (1.6-2.6); Potassium 3.9 mmol/L (3.3-5.1); Sodium 141 mmol/L (135-145); Total Protein 7.8 g/dL (6.5-8.0)
[2025-04-17 14:42] LABS: Troponin-I High Sensitivity < 2.7 ng/L (<3.5-35.0)
[2025-04-17 14:57] LABS: Resp Syncy Virus RNA Qual PCR NEGATIVE (Negative); SARS COV2 PCR INHOUSE NEGATIVE (Negative)
[2025-04-17 15:01] VITALS: BP 157/87; PULSE 76; RESP 16; TEMP 36.9; O2SAT 95
--- OUTSIDE RECORDS SUMMARY | 2025-04-17 15:29 | XMS_ITS | Clinical Summary ---
Author Organization [facility] Address [address] [place] [address] Phone Care Team Providers Care Defect Repairer Glassware Name Role Phone Franca Perkins MD Primary Care Provider Allergies No known active allergies Medications amLODIPine (NORVASC) 10 MG tablet Take 10 mg by mouth 1 (one) time each day Active aspirin (ST SHAILESH) 81 MG EC tablet Take 81 mg by mouth 1 (one) time each day Active fenofibrate (TRICOR) 54 MG tablet Take 54 mg by mouth 1 (one) time each day Active gabapentin (NEURONTIN) 100 MG capsule Take 100 mg by mouth in the morning and 100 mg in the evening. Active hydroCHLOROthia zide 25 MG tablet Take 25 mg by mouth 1 (one) time each day Active lisinopril 40 MG tablet Take 40 mg by mouth 1 (one) time each day Active Active Problems Problem Noted Date Diagnosed Date Renal stone 06/11/2022 Chronic kidney disease 05/04/2022 Family History Medical History Relation Comments Hypertension Father Diabetes Mother Hypertension Mother Lupus Mother Cancer Sister Thyroid cancer Relation Status Comments Father Mother Sister Social History Tobacco Use Types Packs/Day Years Used Date Smoking Tobacco: Never Smokeless Tobacco: Never Tobacco Cessation:Counseling Given: Not Answered Alcohol Use Standard Drinks/Week Comments Yes 0 (1 standard drink = 0.6 oz pur e alcohol) Sex and Gender Information Value Date Recorded Sex Assigned at Not on file Legal Sex Male 1:29 PM EDT Gender Identity Not on file Sexual Orientation Not on file Last Filed Vital Signs Vital Sign Reading Time Taken Comments Blood Pressure 150/84 06/11/2022 3:18 PM EDT Pulse 76 06/11/2022 3:18 PM EDT Temperature - - Respiratory Rate - - Oxygen Saturation 95% 06/11/2022 3:18 PM EDT Inhaled Oxygen Concentration - - Weight 145 kg (320 lb) 05/05/2022 4:01 PM EDT Height - - Body Mass Index - - Plan of Treatment Health Maintenance Due Date Last Done Comments Hepatitis B Vaccine (1 of 3 - 19+ 3-dose series) 03/03 Pneumococcal Vaccine: Peds ( 0 to 5 Years) and At-Risk Patients (6 to 49 Years) (1 of 2 - PCV) 1995 Colorectal Cancer Screening: Annual FOBT 2025 Colorectal Cancer Screening: Colonoscopy 2025 Colorectal Cancer Screening: Sigmoidoscopy 2025 Influenza Vaccine (#1) 2025 Insurance [facility] Care Teams Defect Repairer Glassware Relationship Specialty Start Date End Date Franca Perkins MD [address] [place] [address] PCP - General Internal Medicine 04/14/22
== END 2025-04-17 15:24 | disposition home or self-care (01) ==
PROVIDERS: Physician Assistant Medical; Emergency Provider Emergency Medicine; PCP Student in an Organized Health Care Education/Training Program
DX: R00.2 Palpitations (principal); I10 Essential (primary) hypertension; Z03.818 Encounter for observation for suspected exposure to other biological agents ruled out; Z79.899 Other long term (current) drug therapy
CPT/HCPCS: 71046; 80053; 83735; 84484; 85025; 85610; 87637; 93005; 99283; 99284

== ENCOUNTER → 2025-04-17 13:47 | Outpatient (BNV) | payer BC, SELFPAY | PROVIDERS: Emergency Provider Emergency Medicine; PCP Student in an Organized Health Care Education/Training Program; Visit Provider Radiology Diagnostic Radiology | DX: R07.9 Chest pain, unspecified (principal); R00.2 Palpitations | CPT/HCPCS: 71046 ==

== ENCOUNTER 2025-04-17 15:29 | Outpatient (AMB) | payer BC, SELFPAY ==
[2025-04-17 15:27] VITALS: BP 160/82; PULSE 83
--- NOTE | 2025-04-17 15:27 | MHC.OFFVIS ---
Vital Signs 04/17/25 15:27 Height 6 ft 3 in BP 160/82 H Blood Pressure Location Lt brachial Position Sitting Pulse 83 Pulse Source Pulse Oximeter Intake Visit Reasons: per km Allergies No Known Allergies Allergy (Verified 04/17/25 13:48) Medication List - Last Reconciled 04/17/25 by Terry Driver MD amlodipine 10 mg PO DAILY 90 days aspirin (Adult Low Dose Aspirin) 81 mg PO DAILY blood pressure test kit-large As directed fenofibrate 54 mg PO DAILY 90 days gabapentin 300 mg PO DAILY 90 days hydralazine 25 mg PO TID lisinopril 40 mg PO BID semaglutide (weight loss) (Wegovy) 0.5 mg (0.5 mL) subcut QWEEK 4 weeks HPI Comments Details: [age] year gentleman with background history of bicuspid aortic valve and hypertension. He urgently presented to office today along with his . He was in the emergency department with chest pressure. He said he was sitting and started having pressure-like feeling in the center of her chest and went to the emergency department. Was noticed to have elevated blood pressure. He was also having palpitations. EKGs was normal. His blood workup including troponins were negative and he was sent home. After that the brought him to our office for assessment. He is saying he has mild chest discomfort script present. His blood pressure is 160/82. He is also complaining of a pulsation/throbbing sensation over the body as well as pressure on back of his head. He has not been compliant with salt intake and eats food with salt. Occasionally drinks. He occasionally uses ibuprofen. He has sleep apnea and uses his CPAP regularly. [facility] Medical History Restless leg Left elbow pain Hypertriglyceridemia Family history of colon cancer Right knee pain Left knee pain Right ankle pain Breast mass, right Lumbar degenerative disc disease Lumbosacral stenosis Pain in thoracic spine Muscle spasm Paresthesia of left arm Numbness and tingling of left side of face KAYLA (obstructive sleep apnea) Morbid obesity Bicuspid aortic valve Hypertension Surgical History History of vasectomy Family History Father HTN (hypertension) Mother HTN (hypertension) Diabetes Lupus Sister Thyroid cancer Maternal Grandfather Colon cancer Maternal Aunt Stomach cancer Social History Housing: House Alcohol intake: current Alcohol intake frequency: holidays/special occasions only Alcohol type: beer Patient Tobacco Use Status: Never used Tobacco e-Cigarette/Vaping Use: Never Used Second Hand Smoke Exposure: No service: No Current occupational status: employed Current occupational exposures/hazards: No Cognitive needs: No Hearing needs: No Vision needs: No Review of Systems Const Denies chills, Denies fatigue, Denies fever(s), Denies frequent falls, Denies weakness, Denies weight gain and Denies weight loss ENT Denies dizziness Card Reports chest pain, Denies leg edema, Denies lightheadedness, Denies palpitations, Denies dyspnea and Denies dyspnea on exertion Resp Denies cough, Denies dyspnea and Denies dyspnea on exertion GI Denies hematochezia Musc Denies abnormal gait, Denies muscle weakness, Denies numbness, Denies radiating pain into limb and Denies tingling Neuro Denies abnormal gait, Denies dizziness, Denies frequent falls, Denies numbness, Denies tingling and Denies weakness Endo Denies fatigue and Denies palpitations Physical Exam Vital Signs: Last Vital Signs Pulse 83 04/17/25 15:27 BP 160/82 H 04/17/25 15:27 GENERAL APPEARANCE: in no acute distress, pleasant. NECK: no carotid bruit, no jugular venous distention. SKIN: no suspicious lesions, warm and dry. HEART: no murmurs, regular rate and rhythm. LUNGS: clear to auscultation bilaterally. ABDOMEN: soft, nontender. EXTREMITIES: no edema. PERIPHERAL PULSES: equal. NEUROLOGIC: No gross deficits, AAO X 3 Assessment & Plan Assessment & Plan (1) Hypertension: Code(s): I10 - Essential (primary) hypertension Category: Medical Qualifiers: Hypertension type: essential hypertension Qualified Code(s): I10 - Essential (primary) hypertension (2) Bicuspid aortic valve: Comment: Bicuspid aortic valve without any significant stenosis or regurgitation. Code(s): Q23.1 - Congenital insufficiency of aortic valve Category: Medical (3) Chest pressure: Code(s): R07.89 - Other chest pain Category: Medical Plan Pleasant 50 year gentleman with background of bicuspid aortic valve stenosis, hypertension and obesity presenting for chest pressure. He was ruled out in the emergency department today. His blood pressure is elevated. He is complaining of palpitations as well as pressure behind his head. I think his symptoms are related to elevated blood pressure. His EKGs benign does not have any dynamic changes. I have advised him to cut back on salt intake. Adding hydrochlorothiazide-spironolactone combination. He will come back in office in 10 days for blood pressure check. He will otherwise see us saw in the office in 3-4 months. I will repeat basic metabolic panel in 10 days when he will present for blood pressure check. Thank you for allowing me to participate in the care of your patient. Please feel free to contact me if you have any questions. Orders: Orders Basic Metabolic Panel Today I10 - Essential (primary) hypertension Medications: New spironolacton-hydrochlorothiaz 25-25 mg 1 tab PO DAILY 90 tabs 3RF Coding Level of Care Code Est Pt Level 4 (68491) Diagnoses Essential hypertension I10 Hypertension type: essential hypertension Bicuspid aortic valve Q23.1 Chest pressure R07.89
== END 2025-04-17 15:44 | disposition home or self-care (01) ==
LOC: HO.HCS 15:29
PROVIDERS: PCP Student in an Organized Health Care Education/Training Program; Visit Provider Internal Medicine Cardiovascular Disease
DX: I10 Essential (primary) hypertension (principal); Q23.1 Congenital insufficiency of aortic valve; R07.89 Other chest pain
CPT/HCPCS: 99214

== ENCOUNTER 2025-04-19 15:39 | Outpatient (AMB) | payer BC, SELFPAY ==
--- NOTE | 2025-04-19 15:36 | MHC.OFFVIS ---
Intake Visit Reasons: f/u appt Intake Note: Patient is here for restless legs. Reading Aide Required: No Accompanied by: Self / Same As Patient Allergies No Known Allergies Allergy (Verified 04/17/25 13:48) HPI Comments Details: 50-year-old male patient presents with his for follow-up televideo visit for RLE meralgia paresthetica and KAYLA. Patient was last seen in August 2023 by our previous colleague Eryn Harris PODIATRIST ASSISTANT Patient denies any significant interval medical history changes. Patient reports he is continuing to have bouts of right thigh numbness and burning pain. He states he experiences right lateral thigh numbness, which after some time, is followed by burning pain. This is often triggered by prolonged sitting of greater than an hour. He does not consistently use gabapentin, as he will have bouts of this pain that come consistently and then subside for some time. He states he tolerates gabapentin well. He does also endorse intermittent right upper buttock region muscle tightness, typically triggered by sitting or walking for longer periods. This can be associated with a right thigh numbness and burning pain, but not consistently. Recent lab work was notable for elevated random blood sugar-160s. Patient has no known diagnosis of diabetes, however has family history of diabetes. He denies RLE weakness, leg cramps, or recurrent peripheral numbness/tingling. Patient reports he is compliant with his CPAP machine, and sleeps well with the use. CPAP review: [email or web address]: [facility] AirSense 10 AutoSet Serial number: [id number] 90 day CPAP compliance report, 01/12/2025-04/11/2025 Overall usage 79% Usage greater than 4 hours 76% Average usage days used 6 hours and 44 minutes CPAP 11 cm H2O with EPR 3 Median leaks 0.9 L/min Residual AHI 2.3 per hour 2021, initial HPI by Dr. Kenya Brock: Pt reports that the numbness and tingling in his right lateral upper thigh started in 2018. Denies any injury at that time. He states that right anterior thigh feels numb, like it is plastic and the right lateral thigh feels tingling. He can have mild pain in right gluteal and posterior thigh when his leg crossed. He states that the numbness and tingling starts when he sitting long, and it goes away with walking and activity. 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 Pt gained wt about 23 lb over the last year. Pt has hx of lower back pain and right upper thigh pain. He saw [facility], and MRI done in September,. MRI result showed mild disc bulges at L4-5 and S1, no significant nerve compression. Denies lower extremities weakness, shooting pain or numbness/tingling on bilateral feet. No EMG done for RLE. [facility] Medical History Restless leg Left elbow pain Hypertriglyceridemia Family history of colon cancer Right knee pain Left knee pain Right ankle pain Breast mass, right Lumbar degenerative disc disease Lumbosacral stenosis Pain in thoracic spine Muscle spasm Paresthesia of left arm Numbness and tingling of left side of face KAYLA (obstructive sleep apnea) Morbid obesity Bicuspid aortic valve Hypertension Surgical History History of vasectomy Family History Father HTN (hypertension) Mother HTN (hypertension) Diabetes Lupus Sister Thyroid cancer Maternal Grandfather Colon cancer Maternal Aunt Stomach cancer Social History Housing: House Alcohol intake: current Alcohol intake frequency: holidays/special occasions only Alcohol type: beer Patient Tobacco Use Status: Never used Tobacco e-Cigarette/Vaping Use: Never Used Second Hand Smoke Exposure: No service: No Current occupational status: employed Current occupational exposures/hazards: No Cognitive needs: No Hearing needs: No Vision needs: No Physical Exam Const General: cooperative and no acute distress Nutritional Appearance: obese Orientation/consciousness: patient oriented x3 Neuro Other: Patient able to stand up easily out of his chair during visit. General: patient oriented x3 and moves all extremities Psych Appearance: grossly normal Mental Status: mental status grossly normal Speech and movement: Normal speech and movement present Telehealth Telehealth Telehealth Platform: [facility] Location of provider rendering services: practice address Location of patient: address on file Patient Identification confirmed using: Name, : Yes Telehealth method: video Patient verbally consented to treatment: Yes Patient verbally consented to billing insurance company: Yes Patient informed of any privacy concerns related to visit: Yes Minutes spent on Phone/Video with Pt.: 22 Assessment & Plan Assessment & Plan (1) Meralgia paresthetica, right lower limb: Code(s): G57.11 - Meralgia paresthetica, right lower limb Category: Medical (2) KAYLA on CPAP: Code(s): G47.33 - Obstructive sleep apnea (adult) (pediatric) Category: Medical (3) Elevated blood sugar: Code(s): R73.9 - Hyperglycemia, unspecified Category: Medical (4) Lumbar radiculopathy, chronic: Code(s): M54.16 - Radiculopathy, lumbar region Category: Medical (5) Lumbar degenerative disc disease: Code(s): M51.36 - Other intervertebral disc degeneration, lumbar region Category: Medical Qualifiers: Disc-related pain type: discogenic back pain only Qualified Code(s): M51.360 - Other intervertebral disc degeneration, lumbar region with discogenic back pain only Plan Check labs for underlying etiologies PT eval and treat for low back pain and right sided meralgia paresthetica Start magnesium 400 mg daily at bedtime May take gabapentin 300 mg at onset of right thigh numbness, in hopes this prevents burning pain. Then continue taking gabapentin daily until meralgia paresthetica symptoms this side. And then may use as needed with the same protocol. Continue CPAP 11 cmH2O w/ EPR 3 nightly > 4 hours, as pt continues to have good clinical effect from use. Clean CPAP machine and supplies routinely. Change CPAP supplies routinely. Use distilled water in CPAP water reservoir. Pt to contact us or respiratory company with any questions or concerns. Will follow-up upon review of above and patient to follow-up in clinic in 6 months or sooner prn. Orders: Orders TSH reflex Free T4 Today E66.01 - Morbid (severe) obesity due to excess calories, G25.81 - Restless legs syndrome, I10 - Essential (primary) hypertension, R73.9 - Hyperglycemia, unspecified C Reactive Protein Today E66.01 - Morbid (severe) obesity due to excess calories, G25.81 - Restless legs syndrome, I10 - Essential (primary) hypertension, R73.9 - Hyperglycemia, unspecified Erythrocyte Sedimentation Rate Today E66.01 - Morbid (severe) obesity due to excess calories, G25.81 - Restless legs syndrome, I10 - Essential (primary) hypertension, R73.9 - Hyperglycemia, unspecified Hemoglobin A1c Today E66.01 - Morbid (severe) obesity due to excess calories, I10 - Essential (primary) hypertension, R73.9 - Hyperglycemia, unspecified Vitamin D 25-OH (D2 and D3) Today E55.9 - Vitamin D deficiency, unspecified, E66.01 - Morbid (severe) obesity due to excess calories, G25.81 - Restless legs syndrome, I10 - Essential (primary) hypertension, R73.9 - Hyperglycemia, unspecified Vitamin B12 and Folate Today E66.01 - Morbid (severe) obesity due to excess calories, G25.81 - Restless legs syndrome, I10 - Essential (primary) hypertension, R73.9 - Hyperglycemia, unspecified Magnesium Today E66.01 - Morbid (severe) obesity due to excess calories, G25.81 - Restless legs syndrome, I10 - Essential (primary) hypertension, R73.9 - Hyperglycemia, unspecified PT Evaluation and Treatment Today G57.11 - Meralgia paresthetica, right lower limb, M51.360 - Other intervertebral disc degeneration, lumbar region with discogenic back pain only, M54.16 - Radiculopathy, lumbar region Coding Level of Care Code Tele Est Pt Level 4 (77683) Diagnoses Meralgia paresthetica, right lower limb G57.11 KAYLA on CPAP G47.33 Elevated blood sugar R73.9 Lumbar radiculopathy, chronic M54.16 Degeneration of intervertebral disc of lumbar region with discogenic back pain M51.360 Disc-related pain type: discogenic back pain only
--- OUTSIDE RECORDS SUMMARY | 2025-04-19 15:58 | XMS_ITS | Clinical Summary ---
Author Organization [facility] Address [address] [place] [address] Phone Care Team Providers Care Engagement Manager Name Role Phone Franca Perkins MD Primary Care Provider [phone] Allergies No known active allergies Medications amLODIPine [...] Sigmoidoscopy 2025 Influenza Vaccine (#1) 2025 Insurance [facility] Care Teams Engagement Manager Relationship Specialty Start Date End Date Franca Perkins MD [address] [place] [address] PCP - General Internal Medicine 04/14/22
== END 2025-04-30 09:37 | disposition home or self-care (01) ==
PROVIDERS: PCP Internal Medicine; Visit Provider Nurse Practitioner Family
DX: G57.11 Meralgia paresthetica, right lower limb (principal); G47.33 Obstructive sleep apnea (adult) (pediatric); R73.9 Hyperglycemia, unspecified; M51.360 Other intervertebral disc degeneration, lumbar region with discogenic back pain only
CPT/HCPCS: 99214

== ENCOUNTER 2025-04-25 08:01 | Outpatient (REF) | payer BC, SELFPAY ==
[2025-04-25 09:52] LABS: Hemoglobin A1C 191.2413 umol/L; Total Hemoglobin (HGBA1C) 4062.8322 umol/L
[2025-04-25 10:44] LABS: Anion Gap 13 (12-20); Blood Urea Nitrogen 18 mg/dL (9-16); Calcium 9.9 mg/dL (8.4-10.2); Carbon Dioxide 26 mmol/L (22-29); Chloride 104 mmol/L (96-108); Estimated Glomerular Filt Rate > 60; Magnesium 2.0 mg/dL (1.6-2.6); Potassium 4.3 mmol/L (3.3-5.1); Sodium 139 mmol/L (135-145)
[2025-04-25 11:16] LABS: Folate 10.6 ng/mL (> or = 4.0); Vitamin B12 487 pg/mL (200-900)
[2025-04-30 15:27] LABS: Vitamin D 25-OH, D2 <4 ng/mL; Vitamin D 25-OH, D3 26 ng/mL; Vitamin D 25-OH, Total 26 ng/mL (30-100)
== END 2025-04-25 08:02 | disposition home or self-care (01) ==
LOC: HO.LAB 08:01
PROVIDERS: Absent Provider Internal Medicine Cardiovascular Disease; PCP Internal Medicine; Visit Provider Nurse Practitioner Family
DX: R73.9 Hyperglycemia, unspecified (principal); E66.01 Morbid (severe) obesity due to excess calories; I10 Essential (primary) hypertension; G25.81 Restless legs syndrome; E55.9 Vitamin D deficiency, unspecified
CPT/HCPCS: 36415; 80048; 82306; 82607; 82746; 83036; 83735; 84443; 85652; 86140